=== PATIENT | male | born 1975 | race Caucasian/White ===

== ENCOUNTER 2020-03-15 14:13 | Observation (INO) | payer SELFPAY ==
[2020-03-15] VITALS (20 sets, daily range): BP systolic 136–207; BP diastolic 60–122; PULSE 79–103; RESP 14–24; TEMP 36.2–36.8; O2SAT 95–100; BMI 38.7
--- NOTE | 2020-03-15 14:40 | DI.RAD.S_ITS ---
PROCEDURE: XR CHEST 1V INDICATIONS: chest pain TECHNIQUE: One view of the chest was acquired. COMPARISON: None. FINDINGS: Surgical changes and devices: None. Lungs and pleura: Lungs are clear. No pleural effusions or pneumothorax. Mediastinum: Mediastinal contours appear normal. Heart size is enlarged. Bones and chest wall: No suspicious bony lesions. Overlying soft tissues appear unremarkable. IMPRESSION: No acute pulmonary process. Dictated by: Keysha Velasquez M.D. on 03/15/2020 at 15:31 Approved by: Keysha Velasquez M.D. on 03/15/2020 at 15:31
[2020-03-15 15:29] LABS: Add Manual Diff / Slide Review NO; Basophils Absolute Auto 0 /uL (0-100); Basophils Percent Auto 0.6 % (0-2); Eosinophils Absolute Auto 0 /uL (0-450); Eosinophils Percent Auto 0.4 % (2-4); Hemoglobin 15.5 g/dL (13.5-17.5); Lymphocytes Absolute Auto 1300 /uL (1100-4500); Lymphocytes Percent Auto 16.1 % (25-40); Mean Corpuscular HGB Conc 35.4 % (30-36); Mean Corpuscular Hemoglobin 33.5 PG (26-34); Mean Corpuscular Volume 94.6 fL (80-100); Monocytes Absolute Auto 500 /uL (0-900); Monocytes Percent Auto 6.1 % (3-14); Neutrophils Absolute Auto 6200 /uL (1500-7000); Neutrophils Percent Auto 76.8 % (50-75); Platelet Count 238 X10^3/uL (150-400); Red Blood Cell Count 4.65 X10^6/uL (4.5-5.9); Red Cell Distribution Width 13.3 % (11.6-14.8); White Blood Cell Count 8.1 X10^3/uL (4.5-11.0)
[2020-03-15 15:49] LABS: Alanine Aminotransferase 128 IU/L (<50); Albumin 4.7 g/dL (3.5-5.0); Albumin Globulin Ratio 1.4 (1.0-2.8); Alkaline Phosphatase 76 U/L (38-126); Aspartate Aminotransferase 64 IU/L (17-59); BUN Creatinine Ratio 21.1 (6-22); Bilirubin Total 0.7 mg/dL (0.2-1.3); Blood Urea Nitrogen 15 mg/dL (9-20); Calcium 9.7 mg/dL (8.4-10.2); Carbon Dioxide 26 mmol/L (22-32); Chloride 107 mmol/L (98-107); Creatine Kinase 102 U/L (55-170); Estimated Glomerular Filt Rate > 60.0 mL/min (>60); Globulin 3.4 g/dL (1.7-4.1); Glucose 116 mg/dL (70-100); HEMOLYSIS < 15 (0-50); Lipase 159 U/L (23-300); Potassium 3.9 mmol/L (3.4-5.1); Sodium 141 mmol/L (137-145); Total Protein 8.1 g/dL (6.3-8.2)
--- NOTE | 2020-03-15 15:52 | ED_ITS ---
HPI - General Adult General Chief complaint: Headache Stated complaint: headache Time Seen by Provider: 03/15/20 15:35 Source: patient and family Mode of arrival: Ambulatory Limitations: no limitations History of Present Illness HPI narrative: Patient here for multiple complaints in past 2 or 3 weeks. Patient here with mother. Patient is on [facility]. Sent here from there [facility]. Complaints of off and on headache for the past 2 or 3 weeks. Chest pain today left side nonradiating. Currently no chest pain. Also complains of a lipoma/fat pad base of left neck. Posteriorly. Patient states was placed on blood pressure medication 2 or 3 months ago. Has not gone back for recheck. Is on lisinopril. Denies any slurred speech facial droop. No unilateral weakness or numbness or tingling no confusion. No nausea or vomiting. Family history of coronary disease. Family history of stroke. Chrystal alexander never had cardiac workup in the past. No stress test. Related Data Home Medications Medication Instructions Recorded Confirmed lisinopril 30 mg PO DAILY 03/15/20 03/15/20 Previous Rx's Medication Instructions Recorded atorvastatin [Lipitor] 10 mg PO BEDTIME #30 tab 03/16/20 metoprolol tartrate 50 mg PO DAILY #30 tab 03/16/20 Allergies Allergy/AdvReac Type Severity Reaction Status Date / Time No Known Drug Allergies Allergy Verified 03/16/20 04:39 Review of Systems Review of Systems Narrative: GENERAL: Denies chills, fatigue, malaise, fever, sweats. HEENT: Denies sinus pain, ear pain, sore throat, difficulty swallowing RESPIRATORY: Denies dyspnea, cough CARDIOVASCULAR: Complains chest pain, denied palpitations, edema, GASTROINTESTINAL: Denies nausea, vomiting, abdominal pain, diarrhea, constipation, melena. : Denies dysuria, frequency, hematuria MUSCULOSKELETAL: denies muscle or bony pain SKIN: Denies rash, complains skin lesion NEUROLOGIC: Denies weakness, complaint headache, denies numbness, change in speech, confusion PSYCHIATRIC: No SI or HI or hallucinations ROS Unobtainable: All systems reviewed & are unremarkable except as noted in HPI and below Patient History Medical History Alcohol dependence (Acute) Disorder of left rotator cuff (Acute) Essential hypertension (Acute) Stress fracture of foot (Acute) Surgical History No history of previous surgery (Acute) Family History (Updated 03/16/20 @ 00:23 by JEFF Bledsoe) Father Trauma Mother Medical history unknown Grandfather Heart disease Heart attack Family/Other Stroke Social History household members: significant other Smoking Status: Former smoker Smoking Status: Former smoker alcohol intake frequency: 3 or more drinks per day Substance Use Type: marijuana Exam Narrative Exam Narrative: GENERAL: patient appears stated age. Well-nourished, well-devel oped patient, in no distress, not toxic not dyspneic HEAD: Normocephalic. EYES: Pupils equal round and reactive. No scleral icterus. No injection no discharge, patient photophobic with for endoscopy ENT: Mucous membranes moist. No drooling no tongue elevation no trismus no malocclusion NECK: Trachea midline. Non tender, no meningeal signs. There is a palpable posterior base of left neck 4 cm nontender mobile lipoma CARDIOVASCULAR: Regular rate and rhythm without murmurs, gallops, or rubs. RESPIRATORY: Clear to auscultation. Breath sounds equal bilaterally. No wheezes, rales, or rhonchi. GASTROINTESTINAL: Abdomen soft, non-tender, nondistended. EXTREMITIES: No gross deformities. BACK: Nontender without deformity or crepitance. No flank tenderness. NEURO: AOx4. Clear speech no facial droop light touch intact to bilateral face hands and legs. Strong equal developer evangelist. SKIN: Warm and dry PSYCH: Not anxious, is cooperative Initial Vital Signs Initial Vital Signs: Vital Signs Temperature 98.2 F 03/15/20 14:27 Pulse Rate 86 03/15/20 14:27 Respiratory Rate 18 03/15/20 14:27 Blood Pressure 207/122 H 03/15/20 14:27 Pulse Oximetry 100 03/15/20 14:27 Course Course Course Narrative: No cardiac workup in the past. No current chest pain at this time. Decision to Admit Date: 03/15/20 Decision to Admit time: 17:03 Orders Ordered: Discontinued Medications Acetaminophen (Tylenol) 650 mg PO Q6HR PRN PRN Reason: Fever/Mild Pain (1-3) Last Admin: 03/16/20 08:08 Dose: 650 mg Documented by: Admin: 03/16/20 03:54 Dose: 650 mg Documented by: BALWINDER Al Hydrox/Mg Hydrox/Simethicone (Maalox Plus) 30 ml PO Q6HR PRN PRN Reason: Dyspepsia Aspirin (Aspirin Chew) 324 mg PO NOW ONE Stop: 03/15/20 17:05 Last Admin: 03/15/20 17:16 Dose: 324 mg Documented by: CONSTANZA Aspirin (Aspirin Ec) 81 mg PO DAILY [facility] Last Admin: 03/16/20 08:08 Dose: 81 mg Documented by: YAYA Bisacodyl (Dulcolax) 10 mg SC DAILY PRN PRN Reason: Constipation Calcium Carbonate (Tums) 1,000 mg PO Q4HR PRN PRN Reason: Dyspepsia Carvedilol (Coreg) 3.125 mg PO BID [facility] Last Admin: 03/16/20 08:08 Dose: 3.125 mg Documented by: Admin: 03/15/20 21:53 Dose: 3.125 mg Documented by: GLORIA Chlordiazepoxide HCl (Librium) 25 mg PO TID [facility] Last Admin: 03/16/20 08:59 Dose: Not Given Documented by: Admin: 03/16/20 01:42 Dose: 25 mg Documented by: BALWINDER Docusate Sodium (Colace) 100 mg PO BID PRN PRN Reason: Constipation Enoxaparin Sodium (Lovenox) 40 mg SUBCUT DAILY [facility] Last Admin: 03/16/20 08:08 Dose: 40 mg Documented by: YAYA Folic Acid (Folic Acid) 1 mg PO DAILY [facility] Last Admin: 03/16/20 08:08 Dose: 1 mg Documented by: YAYA Magnesium Sulfate 2 gm/ Folic Acid 1 mg/ Thiamine HCl 100 mg / Multivitamins 10 ml/ Sodium Chloride 1,015.2 mls @ 125 mls/hr IV NOW ONE Stop: 03/16/20 08:32 Last Infusion: 03/16/20 09:26 Dose: 0 mls/hr Documented by: Admin: 03/16/20 01:41 Dose: 125 mls/hr Documented by: BALWINDER Labetalol HCl (Trandate) 10 mg IV NOW ONE Stop: 03/15/20 17:05 Last Admin: 03/15/20 17:17 Dose: 10 mg Documented by: CONSTANZA Labetalol HCl (Trandate) 10 mg IV Q4HR PRN PRN Reason: Hypertension Lorazepam (Ativan) 0 mg PO CIWAPRN PRN; Protocol PRN Reason: Alcohol Withdrawal Last Admin: 03/15/20 21:53 Dose: 1 mg Documented by: GLORIA Lorazepam (Ativan) 0 mg IV CIWAPRN PRN; Protocol PRN Reason: Alcohol Withdrawal Morphine Sulfate (Morphine) 2 mg IV Q5MIN PRN PRN Reason: Chest Pain Naloxone HCl (Narcan) 0.2 mg IV Q2MIN PRN PRN Reason: Opiate Reversal Nitroglycerin (Nitrostat) 0.4 mg SL [id number] PRN PRN Reason: Chest Pain Ondansetron HCl (Zofran) 4 mg IV Q8HR PRN PRN Reason: Nausea And Vomiting Pantoprazole Sodium (Protonix) 40 mg IV DAILY [facility] Last Admin: 03/16/20 08:08 Dose: 40 mg Documented by: YAYA Sodium Chloride (Normal Saline 0.9% Flush) 10 ml IV PRN PRN PRN Reason: Flush Last Admin: 03/16/20 01:42 Dose: 10 ml Documented by: DIETERRDEL Sodium Chloride (Normal Saline 0.9% Flush) 10 ml IV BID [facility] Last Admin: 03/16/20 08:08 Dose: 10 ml Documented by: YAYA Thiamine HCl (Vitamin B-1) 100 mg PO DAILY [facility] Stop: 03/18/20 09:01 Last Admin: 03/16/20 08:08 Dose: 100 mg Documented by: YAYA Reevaluation(s) Reevaluation #1: No chest pain at this time. No nitro indicated. Will give aspirin Time: 17:03 Consultations Consultation #1: Spoke with hospitalist, Dr. zamora. Will admit. Give labetalol 10 mg IV Time: 17:03 Vital Signs Vital signs: Vital Signs - 8 hr 03/15/20 14:27 03/15/20 14:35 03/15/20 15:34 Temperature 98.2 F Pulse Rate 86 87 Respiratory Rate 18 18 Blood Pressure 207/122 H 207/122 H Pulse Oximetry 100 97 03/15/20 15:37 03/15/20 16:00 03/15/20 16:01 Temperature Pulse Rate 81 86 86 Respiratory Rate 14 15 19 Blood Pressure 166/105 H 189/97 H Pulse Oximetry 96 97 97 03/15/20 16:30 03/15/20 16:31 Temperature Pulse Rate 89 88 Respiratory Rate 20 23 Blood Pressure 180/101 H Pulse Oximetry 98 96 Medical Decision Making Lab Data Lab results reviewed: Yes I reviewed the patient's lab results. Result diagrams: 03/15/20 14:40 03/16/20 03:45 Labs: Lab Results 03/15/20 03/15/20 03/15/20 Range/Units 14:40 14:40 15:19 WBC 8.1 (4.5-11.0) X10^3/uL RBC 4.65 (4.5-5.9) X10^6/uL Hgb 15.5 (13.5-17.5) g/dL Hct 44.0 (41-53) % MCV 94.6 (80-100) fL MCH 33.5 (26-34) PG MCHC 35.4 (30-36) % RDW 13.3 (11.6-14.8) % Plt Count 238 (150-400) X10^3/uL Neut % (Auto) 76.8 H (50-75) % Lymph % (Auto) 16.1 L (25-40) % Johnson % (Auto) 6.1 (3-14) % Eos % (Auto) 0.4 L (2-4) % Baso % (Auto) 0.6 (0-2) % Neut # (Auto) 6200 (8921-8388) /uL Lymph # (Auto) 1300 (5861-9925) /uL Johnson # (Auto) 500 (0-900) /uL Eos # (Auto) 0 (0-450) /uL Baso # (Auto) 0 (0-100) /uL PT 11.6 (10.1-12.7) SECONDS INR 1.0 (0.9-1.3) APTT 32 (26.4-36.2) SECONDS Sodium 141 (137-145) mmol/L Potassium 3.9 (3.4-5.1) mmol/L Chloride 107 (98-107) mmol/L Carbon Dioxide 26 (22-32) mmol/L BUN 15 (9-20) mg/dL Creatinine 0.71 (0.66-1.25) mg/dL Estimated GFR > 60.0 (>60) mL/min BUN/Creatinine Ratio 21.1 (6-22) Glucose 116 H (70-100) mg/dL Calcium 9.7 (8.4-10.2) mg/dL Total Bilirubin 0.7 (0.2-1.3) mg/dL AST 64 H (17-59) IU/L ALT 128 H (<50) IU/L Alkaline Phosphatase 76 (38-126) U/L Total Creatine Kinase 102 (55-170) U/L CK-MB (CK-2) 0.91 (<2.37) ng/mL CK-MB (CK-2) Rel Index 0.9 L (1.5-5.0) % Troponin I < 0.012 (0.01-0.034) ng/mL Total Protein 8.1 (6.3-8.2) g/dL Albumin 4.7 (3.5-5.0) g/dL Globulin 3.4 (1.7-4.1) g/dL Albumin/Globulin Ratio 1.4 (1.0-2.8) Lipase 159 (23-300) U/L Imaging Data Chest x-ray: Radiologist's Impression: [place] [address] XRay Report Signed Patient: Kem Monsalve KMR#: [id number] : 1975Acct:[id number] Age/Sex: 44 / MDate of Service: 03/15/20 Loc: ED Accession Number: [id number] Procedure: XR chest 1V Ordering Provider: Rudy Daniels MD PROCEDURE: XR CHEST 1V INDICATIONS: chest pain TECHNIQUE: One view of the chest was acquired. COMPARISON: None. FINDINGS: Surgical changes and devices: None. Lungs and pleura: Lungs are clear. No pleural effusions or pneumothorax. Mediastinum: Mediastinal contours appear normal. Heart size is enlarged. Bones and chest wall: No suspicious bony lesions. Overlying soft tissues appear unremarkable. IMPRESSION: No acute pulmonary process. Dictated by: Keysha Velasquez M.D. on 03/15/2020 at 15:31 Approved by: Keysha Velasquez M.D. on 03/15/2020 at 15:31 CT scan - head: Radiologist's Impression: [address] [address] [address] Scan Report Signed Patient: Kem Monsalve KMR#: [id number] : 1975Acct:[id number] Age/Sex: 44 / MDate of Service: 03/15/20 Loc: ED Accession Number: [id number] Procedure: CT head/brain wo con Ordering Provider: Rudy Daniels MD PROCEDURE: CT HEAD/BRAIN WO CON INDICATIONS: Headache TECHNIQUE: Noncontrast 4.5 mm thick angled axial sections acquired from the foramen magnum to the vertex, with coronal and sagittal reformats. For radiation dose reduction, the following was used: automated exposure control, adjustment of mA and/or kV according to patient size. COMPARISON: None. FINDINGS: Image quality: Excellent. CSF spaces: Basal cisterns are patent. No extra-axial fluid collections. Ventricles are normal in size and shape. Brain: No midline shift. No intracranial masses or hemorrhage. Owen-white matter interface is normal. Note is made of a cavum septum pellucidum. When discovered in isolation, this is considered to be a developmental variant of no clinical consequence. Skull and face: Calvarium and visualized facial bones are intact, without suspicious lesions. Sinuses: Visualized sinuses and mastoids are clear. IMPRESSION: Unremarkable intracranial study, without an imaging explanation found for the patient's presenting history of headache. Dictated by: Dontae Can M.D. on 03/15/2020 at 15:28 Approved by: Dontae Can M.D. on 03/15/2020 at 15:28 ECG Data Attestation: I personally reviewed and interpreted this ECG as follows: Interpretation: Sinus rhythm, rate 82. No ST elevation or depression MDM Narrative Medical decision making narrative: Appropriate for admission for chest pain rule out and hypertensive urgency/emergency Discharge Plan Departure Patient Disposition: Admitted as Observation Clinical Impression: Hypertensive urgency Chest pain Qualifiers: Chest pain type: unspecified Qualified Code(s): R07.9 - Chest pain, unspecified Discharge Date/Time: 03/15/20 18:30 Instructions: Essential Hypertension, Atorvastatin, Metoprolol, DI for High Cholesterol-Adult Admit Date/Time: 03/15/20 17:11 Admit Provider: Danika Zamora
[2020-03-15 16:01] LABS: Troponin I < 0.012 ng/mL (0.01-0.034)
[2020-03-15 16:04] LABS: CKMB % Relative Index 0.9 % (1.5-5.0); Creatine Kinase MB 0.91 ng/mL (<2.37)
[2020-03-15 16:33] LABS: Prothrombin Time 11.6 SECONDS (10.1-12.7)
[2020-03-15 16:35] LABS: PTT Partial Thromboplastin Tim 32 SECONDS (26.4-36.2)
[2020-03-15] MEDS: ASPIRIN 81 MG CHEW TAB 324 MG PO (17:16)
[2020-03-15] MEDS: LABETALOL 20 MG/4 ML SYRINGE 10 MG IV (17:17)
[2020-03-15 18:02] LABS: COVID19 -Nasal RAPID Negative (Negative)
[2020-03-15 21:15] LABS: Troponin I 0.018 ng/mL (0.01-0.034)
--- NOTE | 2020-03-15 21:35 | P.HP_ITS ---
History of Present Illness History of Present Illness Date Patient Seen: 03/15/20 Time Patient Seen: 20:11 Chief complaint: headache Narrative: Mr. Kem Monsalve is a 44-year-old male patient with a history significant for recently diagnosed hypertension and alcohol abuse who was sent in by the medical clinic on [facility] for evaluation. The patient is a dif ficult historian. The patient was started on lisinopril for hypertension 2-3 months ago which was titrated up from 20-30 mg daily. Over that time the patient felt the medication was not beneficial and reports a persistent occipital headache for the last 2-3 weeks. He further reports having blurry vision yesterday that appears to have returned to normal. He presents to the ER today related to developing chest discomfort that was nonpleuritic, non radiating without associated nausea or diaphoresis. The patient has not been monitoring his blood pressure at home. The patient denies recent cold or flu symptoms, no fevers or chills, no nasal congestion or sore throat. He describes chest tightness across precordium and denies palpitations. He denies complaints of shortness of breath and has occasional nonproductive cough but denies wheezing. Does complain of abdominal pain described as pinching in the upper abdomen with distention but no diarrhea or constipation, no hematemesis, adiel tochezia or melena. His last bowel movement was yesterday. He denies urinary difficulties. He does endorse consuming approximately 6 drinks per day and has had prior withdrawal symptoms. His last drink was 2 days ago. Upon arrival he is afebrile with a temperature 98.2?, heart rate of 86, blood pressure 207/122, respirations 18 saturating 100% on room air. A CT of the head is obtained which is unremarkable his chest x-ray finds the lungs to be clear with normal heart size. Twelve lead EKG finds sinus rhythm with ventricular rate of [address] or T-wave changes or infarct. On laboratory analysis he has a white count of 8.1, hemoglobin of 15.5, hematocrit of 44.0 platelets of 238. His PT is 11.6 with an INR 1.0 and a PTT of 32. His electrolytes are all within normal limits and has a BUN of 15 and creatinine 0.71. His nonfasting glucose is 116. He has a total bilirubin 0.7 with elevated AST of 64, elevated ALT 128 alkaline phosphatase 76. His lipase is 159. His tota l CK is 102, his CK-MB is 0.91 with an index of 0.9% his troponin is negative at less than 0.012. In the ER the patient receives 324 mg of aspirin she and labetalol 10 mg IV x1 with improvement of blood pressure into the 130s. The patient is admitted to the medicine service for hypertensive urgency with associated symptoms of chest pain and visual changes. Patient History Medical History Alcohol dependence (Acute) Disorder of left rotator cuff (Acute) Essential hypertension (Acute) Stress fracture of foot (Acute) Surgical History No history of previous surgery (Acute) Family & Social History Family History (Updated 03/16/20 @ 00:22 by JEFF Bledsoe) Father Trauma Mother Medical history unknown Grandfather Heart disease Heart attack Family/Other Stroke Social History: household members significant other Prior Living Arrangements Apartment/Condo Safety & Behavioral: Feels Safe in Current Yes Environment Been Physically Hurt or No Threatened By a Person Suicidal Ideation Description None Suicide Plan Description No Plan Tobacco & Substance use: Tobacco type smokeless tobacco Smoking Status Former smoker alcohol intake frequency 3 or more drinks per day Substance Use Type marijuana Meds Home Medications and Allergies Home Medications Medication Instructions Recorded Confirmed Type lisinopril 30 mg PO DAILY 03/15/20 03/15/20 History Review of Systems Review of Systems ROS: Yes All systems reviewed with the patient and are negative except as otherwise documented Exam Vital Signs (past 8 hours): - 03/15/20 16:30 03/15/20 16:31 03/15/20 17:00 Temperature Pulse Rate 89 88 101 H Respiratory Rate 20 23 24 Blood Pressure 180/101 H Pulse Oximetry 98 96 97 03/15/20 17:01 03/15/20 17:30 03/15/20 17:31 Temperature Pulse Rate 103 H 90 93 H Respiratory Rate 24 23 21 Blood Pressure 181/96 H 136/77 Pulse Oximetry 95 97 96 03/15/20 17:52 03/15/20 18:00 03/15/20 18:01 Temperature Pulse Rate 80 82 83 Respiratory Rate 20 22 Blood Pressure 136/77 136/60 Pulse Oximetry 97 97 03/15/20 19:47 03/15/20 20:13 03/15/20 21:53 Temperature 97.1 F L Pulse Rate 89 87 Respiratory Rate 20 Blood Pressure 145/96 H 145/96 H Pulse Oximetry 98 96 03/15/20 22:22 03/15/20 23:51 Temperature 98.0 F Pulse Rate 81 79 Respiratory Rate 16 18 Blood Pressure 160/94 H 154/86 H Pulse Oximetry 100 Oxygen Delivery Method Room Air Oxygen Flow Rate 0 Narrative Exam Narrative: GENERAL APPEARANCE: well developed, obese male, BMI 38.6, anxious and uncomfortable appearing. HEENT: Normocephalic, PERRLA, conjunctiva clear, EOMs intact, no nystagmus, mucous membranes are moist and pink without lesions LYMPH NODES: no cervical or supraclavicular lymphadenopathy. SKIN: [place], warm and dry, no visible lesions, rashes, ulcerations or petechiae. HEART: regular rate and rhythm, S1-S2, no murmur, no rubs or gallops, brisk capillary refill, no edema LUNGS: clear to auscultation bilaterally, no coarseness crackles or wheezing, no cough present CHEST: Symmetrical movement, no accessory muscle use, good tidal volume. ABDOMEN: Firm, protuberant, tympanitic bilateral upper quadrants, no fluid wave, upper abdominal tenderness on palpation, no guarding or peritoneal signs, no organomegaly, no flank or suprapubic tenderness, active bowel tones. EXTREMITIES: moves all extremities, strength is 5/5 and symmetrical, no deformities or joint effusions. NEUROLOGIC: AAO x 3, palpable tremulousness, cranial nerves II-XII grossly intact, sensation intact to light touch, hearing grossly normal to speech. PSYCH: Patient is restless and fidgety, difficult time focusing questions, remains cooperative Objective Labs Result Diagrams: 03/15/20 14:40 03/15/20 14:40 Labs: Laboratory Results - last 24 hr 03/15/20 03/15/20 03/15/20 14:40 14:40 15:19 WBC 8.1 RBC 4.65 Hgb 15.5 Hct 44.0 MCV 94.6 MCH 33.5 MCHC 35.4 RDW 13.3 Plt Count 238 Neut % (Auto) 76.8 H Lymph % (Auto) 16.1 L [place] % (Auto) 6.1 Eos % (Auto) 0.4 L Baso % (Auto) 0.6 Neut # (Auto) 6200 Lymph # (Auto) 1300 [place] # (Auto) 500 Eos # (Auto) 0 Baso # (Auto) 0 PT 11.6 INR 1.0 APTT 32 Sodium 141 Potassium 3.9 Chloride 107 Carbon Dioxide 26 BUN 15 Creatinine 0.71 Estimated GFR > 60.0 BUN/Creatinine Ratio 21.1 Glucose 116 H Calcium 9.7 Magnesium Total Bilirubin 0.7 AST 64 H ALT 128 H Alkaline Phosphatase 76 Total Creatine Kinase 102 CK-MB (CK-2) 0.91 CK-MB (CK-2) Rel Index 0.9 L Troponin I < 0.012 Total Protein 8.1 Albumin 4.7 Globulin 3.4 Albumin/Globulin Ratio 1.4 Lipase 159 Nasal Screen MRSA (PCR) COVID-19 PCR 03/15/20 03/15/20 03/15/20 17:27 18:45 20:43 WBC RBC Hgb Hct MCV MCH MCHC RDW Plt Count Neut % (Auto) Lymph % (Auto) [place] % (Auto) Eos % (Auto) Baso % (Auto) Neut # (Auto) Lymph # (Auto) [place] # (Auto) Eos # (Auto) Baso # (Auto) PT INR APTT Sodium Potassium Chloride Carbon Dioxide BUN Creatinine Estimated GFR BUN/Creatinine Ratio Glucose Calcium Magnesium 2.0 Total Bilirubin AST ALT Alkaline Phosphatase Total Creatine Kinase CK-MB (CK-2) CK-MB (CK-2) Rel Index Troponin I Total Protein Albumin Globulin Albumin/Globulin Ratio Lipase Nasal Screen MRSA (PCR) Negative for mrsa COVID-19 PCR Negative 03/15/20 20:43 WBC RBC Hgb Hct MCV MCH MCHC RDW Plt Count Neut % (Auto) Lymph % (Auto) [place] % (Auto) Eos % (Auto) Baso % (Auto) Neut # (Auto) Lymph # (Auto) [place] # (Auto) Eos # (Auto) Baso # (Auto) PT INR APTT Sodium Potassium Chloride Carbon Dioxide BUN Creatinine Estimated GFR BUN/Creatinine Ratio Glucose Calcium Magnesium Total Bilirubin AST ALT Alkaline Phosphatase Total Creatine Kinase CK-MB (CK-2) CK-MB (CK-2) Rel Index Troponin I 0.018 Total Protein Albumin Globulin Albumin/Globulin Ratio Lipase Nasal Screen MRSA (PCR) COVID-19 PCR Assessment & Plan Assessment & Plan narrative: This is a 44-year-old male patient who was sent to the emergency department [facility] related to hypertension and headache developing chest pain today. 1. Hypertensive urgency, present on admission, active -Upon arrival to the ER the patient has a blood pressure was 207/122. Describes headache for 2-3 weeks, visual changes onset yesterday and chest pain onset today. -CT of the head as well as checks x-ray are both unremarkable. -the patient has been prescribed lisinopril for his hypertension, the dose has been escalated from 20 mg to 30 mg incrementally without apparent improvement in his pressure. -in the ER the patient received 10 mg labetalol IV with marked improvement in blood pressure to 136/77. -due to lack of efficacy of lisinopril ordered Coreg 3. 125 mg twice daily. Will assess response and titrate as indicated. -will closely monitor blood pressure. 2. Chest pain, present on admission, active. -onset of chest pain today in setting of marked hypertension, pain is nonple uritic non radiating without shortness of breath and no nausea or vomiting. -EKG is sinus rhythm with a rate of 82 with PACs, no ST or T-wave changes, no infarct. -CK and troponin are both negative, will recheck troponin. -order Protonix 40 mg daily. -chest pain is resulted hypertension, will treat the underlying cause. 3. Alcohol dependence, chronic, active -patient reports drinking 6 drinks daily with his last drink 2 days ago. At time of encounter he is restless and agitated diaphoretic with tremulousness. Patient has had previous alcohol withdrawals. -bilirubin is normal at 0.7 however AST is 64 and ALT 128, lipase is 159. -patient is started on CIWA protocol with p.o. or IV lorazepam per protocol dosing. Seizure precautions in place. -will start low-dose Librium 25 mg 3 times daily. -ordered banana bag with thiamine 100 mg daily for 3 days and folate 1 mg daily. VTE prophylaxis: Enoxaparin IV fluid: Banana bag Diet: Heart healthy Code status: Full code, patient does not designate a surrogate decision maker. The patient is admitted to the hospital due to hypertensive urgency with associated symptoms of chest pain, headache and visual changes. The patient is admitted as observation with expected length of stay to be less than 2 COVID-19 COVID-19 status: Negative Result date/Date tested (Pos, Neg/Pending): 03/15/20 Scores GCS Rosangela coma scale eye opening: Spontaneous [place] coma scale verbal response: Orientated [place] coma scale motor response: Obey commands Rosangela coma scale total score: 15
[2020-03-15] MEDS: carvediloL 3.125 MG TABLET PO (21:53)
[2020-03-15] MEDS: LORazepam 1 MG TABLET PO (21:53)
[2020-03-16] MEDS: MAGNESIUM SULFATE 2 GM, FOLIC ACID 1 MG, THIAMINE 100 MG, MULTIVITAMIN 10 ML in SODIUM ... IV (01:41)
[2020-03-16] MEDS: chlordiazePOXIDE 25 MG CAPSULE PO ×2 (01:42→08:08)
[2020-03-16] MEDS: SODIUM CHLORIDE 0.9% FLUSH 10 ML IV ×2 (01:42→08:08)
[2020-03-16 01:45] VITALS: O2SAT 97
[2020-03-16] MEDS: ACETAMINOPHEN 325 MG TABLET 650 MG PO ×2 (03:54→08:08)
[2020-03-16 04:00] VITALS: BP 132/81; PULSE 72; RESP 15; TEMP 36.3; O2SAT 97
[2020-03-16 04:06] LABS: BUN Creatinine Ratio 27.7 (6-22); Blood Urea Nitrogen 23 mg/dL (9-20); Calcium 8.6 mg/dL (8.4-10.2); Carbon Dioxide 28 mmol/L (22-32); Chloride 108 mmol/L (98-107); Cholesterol 245 mg/dL (140-199); Estimated Glomerular Filt Rate > 60.0 mL/min (>60); Glucose 120 mg/dL (70-100); HDL Cholesterol 42 mg/dL (40-60); HEMOLYSIS < 15 (0-50); LDL Cholesterol Calculated 145 mg/dL (<100); Sodium 140 mmol/L (137-145); Triglycerides 289 mg/dL (35-150)
[2020-03-16 04:18] LABS: Troponin I < 0.012 ng/mL (0.01-0.034)
[2020-03-16 04:21] LABS: Hemoglobin A1C% w Est Avg Glu 5.6 % (4.0-6.0)
[2020-03-16 05:04] LABS: TSH w/ Reflex to FT4 4.57 uIU/mL (0.47-4.68)
--- NOTE | 2020-03-16 06:19 | PC.NURSE ---
Sack Cleaning Hand Note-Patient has slept most of the night, rouses for care, is oriented x4, CIWA 3-4, denies anxiety, displays mild irritability, no tremors, mild diaphoresis, Tylenol given for headache, PO Librium and Banana bag started. SR, PACs. BP 154/86 and 132/81.
[2020-03-16 08:00] VITALS: BP 137/86; PULSE 76; RESP 22; TEMP 36.3; O2SAT 98
[2020-03-16] MEDS: FOLIC ACID 1 MG TABLET PO (08:08)
[2020-03-16] MEDS: ENOXAPARIN 40 MG/0.4 ML SYRINGE SUBCUT (08:08)
[2020-03-16] MEDS: PANTOPRAZOLE 40 MG VIAL IV (08:08)
[2020-03-16] MEDS: THIAMINE 100 MG TABLET PO (08:08)
[2020-03-16] MEDS: carvediloL 3.125 MG TABLET PO (08:08)
[2020-03-16] MEDS: ASPIRIN EC 81 MG TABLET PO (08:08)
--- NOTE | 2020-03-16 09:37 | PM.DS.1 ---
History of Present Illness History of Present Illness Chief complaint: headache Narrative: Mr. Kem Monsalve is a 44-year-old male patient with a history significant for recently diagnosed hypertension and alcohol abuse who was sent in by the medical clinic on [facility] for evaluation. The patient is a difficult historian. The patient was started on lisinopril for hypertension 2-3 months ago which was titrated up from 20-30 mg daily. Over that time the patient felt the medication was not beneficial and reports a persistent occipital headache for the last 2-3 weeks. He further reports having blurry vision yesterday that appears to have returned to normal. He presents to the ER today related to developing chest discomfort that was nonpleuritic, non radiating without associated nausea or diaphoresis. The patient has not been monitoring his blood pressure at home. The patient denies recent cold or flu symptoms, no fevers or chills, no nasal congestion or sore throat. He describes chest tightness across precordium and denies palpitations. He denies complaints of shortness of breath and has occasional nonproductive cough but denies wheezing. Does complain of abdominal pain described as pinching in the upper abdomen with distention but no diarrhea or constipation, no hematemesis, hematochezia or melena. His last bowel movement was yesterday. He denies urinary difficulties. He does endorse consuming approximately 6 drinks per day and has had prior withdrawal symptoms. His last drink was 2 days ago. Upon arrival he is afebrile with a temperature 98.2?, heart rate of 86, blood pressure 207/122, respirations 18 saturating 100% on room air. A CT of the head is obtained which is unremarkable his chest x-ray finds the lungs to be clear with normal heart size. Twelve lead EKG finds sinus rhythm with ventricular rate of [address] or T-wave changes or infarct. On laboratory analysis he has a white count of 8.1, hemoglobin of 15.5, hematocrit of 44.0 platelets of 238. His PT is 11.6 with an INR 1.0 and a PTT of 32. His electrolytes are all within normal limits and has a BUN of 15 and creatinine 0.71. His nonfasting glucose is 116. He has a total bilirubin 0.7 with elevated AST of 64, elevated ALT 128 alkaline phosphatase 76. His lipase is 159. His total CK is 102, his CK-MB is 0.91 with an index of 0.9% his troponin is negative at less than 0.012. In the ER the patient receives 324 mg of aspirin she and labetalol 10 mg IV x1 with improvement of blood pressure into the 130s. The patient is admitted to the medicine service for hypertensive urgency with associated symptoms of chest pain and visual changes. Discharge Providers Provider Date of admission: 03/15/20 17:11 Discharge Date: 03/16/20 Consults: 03/15/20 19:39 Consult to Dietitian, Adult Routine Comment: Reason For Exam: Obese, BMI 30.7 Consult to Discharge Planning Routine Comment: Discharge provider: Danika Zamora MD Summary Hospital Course Discharge Diagnosis: 1. Hypertensive urgency 2. Hyperlipidemia 3. Alcohol dependence 4. Obesity Hospital Course: Patient was admitted to the hospital for hypertensive urgency. His systolic blood pressure was 180 diastolic 100. He had associated headache and chest pain. The patient's EKG was unremarkable, cardiac enzymes x2 were negative. Patient had no further chest pain. He had a minimal headache. With treatment on IV labetalol and lisinopril he had improvement of his blood pressure. The patient had no further shaking diaphoresis. He refused to take his morning Librium. The patient had no hallucinations. Or other symptoms of alcohol withdrawal. As such she was deemed appropriate for discharge and arrangements were made for him to be discharged home. The patient follows up at the clinic on [facility]. He will obtain a blood pressure cuff and measures blood pressures as an outpatient. He will follow-up with his primary care provider for adjustments of medications as needed. Status at Discharge Cognitive/behavioral status at discharge: oriented Functional status at discharge: independent ambulation Overall status at discharge: patient is back to baseline Time Spent with Patient Time spent: Less than 30 minutes Exam Vital Signs (past 8 hours): - 03/16/20 01:45 03/16/20 04:00 03/16/20 08:00 Temperature 97.3 F L 97.4 F L Pulse Rate 72 76 Respiratory Rate 15 22 Blood Pressure 132/81 137/86 Pulse Oximetry 97 97 98 Oxygen Delivery Method Room Air Oxygen Flow Rate 0 Narrative Exam Narrative: Pleasant male in no acute distress Lungs: Clear to auscultation Cardiac exam: Regular rate and rhythm normal S1-S2 Abdomen: Obese soft nontender Extremities: No edema Objective Labs Result Diagrams: 03/15/20 14:40 03/16/20 03:45 Labs: Laboratory Results - last 24 hr 03/15/20 03/15/20 03/15/20 14:40 14:40 15:19 WBC 8.1 RBC 4.65 Hgb 15.5 Hct 44.0 MCV 94.6 MCH 33.5 MCHC 35.4 RDW 13.3 Plt Count 238 Neut % (Auto) 76.8 H Lymph % (Auto) 16.1 L Sol[place] % (Auto) 6.1 Eos % (Auto) 0.4 L Baso % (Auto) 0.6 Neut # (Auto) 6200 Lymph # (Auto) 1300 [place] # (Auto) 500 Eos # (Auto) 0 Baso # (Auto) 0 PT 11.6 INR 1.0 APTT 32 Sodium 141 Potassium 3.9 Chloride 107 Carbon Dioxide 26 BUN 15 Creatinine 0.71 Estimated GFR > 60.0 BUN/Creatinine Ratio 21.1 Glucose 116 H Hemoglobin A1c Calcium 9.7 Magnesium Total Bilirubin 0.7 AST 64 H ALT 128 H Alkaline Phosphatase 76 Total Creatine Kinase 102 CK-MB (CK-2) 0.91 CK-MB (CK-2) Rel Index 0.9 L Troponin I < 0.012 Total Protein 8.1 Albumin 4.7 Globulin 3.4 Albumin/Globulin Ratio 1.4 Triglycerides Cholesterol LDL Cholesterol, Calc HDL Cholesterol Lipase 159 TSH Nasal Screen MRSA (PCR) COVID-19 PCR 03/15/20 03/15/20 03/15/20 17:27 18:45 20:43 WBC RBC Hgb Hct MCV MCH MCHC RDW Plt Count Neut % (Auto) Lymph % (Auto) Sol[place] % (Auto) Eos % (Auto) Baso % (Auto) Neut # (Auto) Lymph # (Auto) Sol[place] # (Auto) Eos # (Auto) Baso # (Auto) PT INR APTT Sodium Potassium Chloride Carbon Dioxide BUN Creatinine Estimated GFR BUN/Creatinine Ratio Glucose Hemoglobin A1c Calcium Magnesium 2.0 Total Bilirubin AST ALT Alkaline Phosphatase Total Creatine Kinase CK-MB (CK-2) CK-MB (CK-2) Rel Index Troponin I Total Protein Albumin Globulin Albumin/Globulin Ratio Triglycerides Cholesterol LDL Cholesterol, Calc HDL Cholesterol Lipase TSH Nasal Screen MRSA (PCR) Negative for mrsa COVID-19 PCR Negative 03/15/20 03/16/20 03/16/20 20:43 03:45 03:45 WBC RBC Hgb Hct MCV MCH MCHC RDW Plt Count Neut % (Auto) Lymph % (Auto) Sol[place] % (Auto) Eos % (Auto) Baso % (Auto) Neut # (Auto) Lymph # (Auto) [place] # (Auto) Eos # (Auto) Baso # (Auto) PT INR APTT Sodium 140 Potassium 4.0 Chloride 108 H Carbon Dioxide 28 BUN 23 H Creatinine 0.83 Estimated GFR > 60.0 BUN/Creatinine Ratio 27.7 H Glucose 120 H Hemoglobin A1c Calcium 8.6 Magnesium Total Bilirubin AST ALT Alkaline Phosphatase Total Creatine Kinase CK-MB (CK-2) CK-MB (CK-2) Rel Index Troponin I 0.018 < 0.012 Total Protein Albumin Globulin Albumin/Globulin Ratio Triglycerides 289 H Cholesterol 245 H LDL Cholesterol, Calc 145 H HDL Cholesterol 42 Lipase TSH Nasal Screen MRSA (PCR) COVID-19 PCR 03/16/20 03/16/20 03:45 03:45 WBC RBC Hgb Hct MCV MCH MCHC RDW Plt Count Neut % (Auto) Lymph % (Auto) Sol[place] % (Auto) Eos % (Auto) Baso % (Auto) Neut # (Auto) Lymph # (Auto) [place] # (Auto) Eos # (Auto) Baso # (Auto) PT INR APTT Sodium Potassium Chloride Carbon Dioxide BUN Creatinine Estimated GFR BUN/Creatinine Ratio Glucose Hemoglobin A1c 5.6 Calcium Magnesium Total Bilirubin AST ALT Alkaline Phosphatase Total Creatine Kinase CK-MB (CK-2) CK-MB (CK-2) Rel Index Troponin I Total Protein Albumin Globulin Albumin/Globulin Ratio Triglycerides Cholesterol LDL Cholesterol, Calc HDL Cholesterol Lipase TSH 4.57 Nasal Screen MRSA (PCR) COVID-19 PCR Discharge Assessment & Plan Assessment and Plan Assessment: 1. Hypertension 2. Hyperlipidemia 3. Alcohol dependence 4. Obesity Plan of Treatment: Medications as prescribed Follow-up with his primary care provider on [facility] next week Home blood pressure cuff to monitor blood pressure accordingly Discharge Plan Discharge Plan Patient Disposition: Home Discharge orders & Medications Prescriptions: New atorvastatin [Lipitor] 10 mg tablet 10 mg PO BEDTIME Qty: 30 RF: 0 metoprolol tartrate 50 mg tablet 50 mg PO DAILY Qty: 30 RF: 0 Continued lisinopril 30 mg Tablet 30 mg PO DAILY RF: 0 Discharge Health Status Care Plan Goals: follow up with PCP on [facility] as discussed. Purchase blood pressure cuff. Take BP and follow up with MD regarding blood pressure readings Diet/Activity/Treatments Diet: Low-sodium and Low-cholesterol Activity: as tolerated Visit Report/Discharge Packet Instructions: Essential Hypertension, Atorvastatin, Metoprolol, DI for High Cholesterol-Adult Visit Report Forms: Patient Portal/API, Stroke Signs & Symptoms Discharge Data Attending Provider: Danika Zamora Admit Date/Time: 03/15/20 17:11 Discharges patient from system. Discharge Date/Time: 03/16/20 12:00
--- NOTE | 2020-03-16 10:58 | CM.DANOTE ---
DCP/Assessment: Reviewed chart. Patient is a 44yr old male admitted to [facility] with headache. No PCP listed. Primary payor is 1)self pay. Met with patient explained CM/SW role. Patient alert and oriented sitting in recliner at time of visit. Patient reports that he hopes to go home today. Dr. Zamora confirms that patient is medically stable. Patient reports that he is working with state on his Medicaid application but he is unsure he will qualify due to employment/income. Patient reports that he actively drinks alcohol. Patient denies the need for any community resources. Encouraged patient to refrain from drinking. Patient will need priority boarding for return sailing to [facility]. RN updated. P: Home today. GIO Fortune Discharge Planning/Care Management Discharge Assessment Start: 03/16/20 10:55 Freq: Status: Active Protocol: Document 03/16/20 10:55 KJS (Rec: 03/16/20 10:58 KJS [id number]) Discharge Planning Assessment Assigned Master Carpenter GIO Fortune Contact Information Ester Norman (mother) Advance Directives? No History Provided By Patient,Medical Record Prior Living Arrangements Apartment/Condo Household Members significant other Type of transporation used prior to Drives own vehicle admit Independent with ADL's Yes Is patient alert and oriented? Yes Caregiver for Another No Barriers to Discharge No Discharge Plan Home Transportation Arrangement Family/friend to provide transport. Referrals Initiated None needed Additional Comment Patient denies need for any community resources. Whiteboard Updated in Patient Room with Yes name and ext. # of Master Carpenter Review Status In Process Next Review Type Continued Stay Review
--- NOTE | 2020-03-16 11:33 | DIET.PN ---
Dietary Progress Note Assessment: 44y M admitted to ICU for hypertensive urgency (BP 207/122) c 2-3w headaches found to have HTG and HLD c family hx of stroke, referred to nutrition for heart healthy diet teaching. Pt was dressed and pacing in room during visit, pts visitor was sitting on cell phone not participating in conversation. Usual Day: doesn't often eat breakfast or lunch, sometimes does a Slim Fast or V8 juice. D: for past 4w pt has subscribed to [employer] meal service which covers all dinners each week. Pt feels [employer] is good value and healthier than what he would otherwise cook himself. Per chart review pt has hx of 6+ etoh equivalents/d. Pt reports working in [employer] prior to cov. Hurt his shoulder and broke his foot since then so has impaired mobility. Pt feels pandemic has changed his life a lot leading to much time at home and some fear regarding being in public places. HT: 177.8cm WT: 122kg BMI: 38.6 Labs: TG 289 H, TC 245 H, LDL 145 H, HDL 42 MNA: normal status Julio Cesar: 22 Nutrition Diagnosis: altered nutrition related laboratory values (TC, TG, LDL, BP) r/t undesirable food choices and nutrition related knowledge deficit aeb pt consuming high sodium foods and diet low in soluble fiber (V8, little F/V/nuts/beans), pt admitted for hypertensive urgency (BP 207/122), TG 289 H, TC 245 H, LDL 145 H. Interventions: 1. Using handout, discussed low sodium diet including hidden sodium sources (bread, canned and boxed foods, salt seasonings). Discussed role of sodium in high bp. Pt willing to switch to LS V8 and use less salt than what is called for in [employer] meals. Discussed role of physical activity in BP, pt has bike which he could start riding to recondition himself since being out of work and his foot is mostly healed. 2. Using handout, discussed role of soluble fiber to reduce cholesterol and for weight management. Pt reports having a couple bags of dried black beans in cupboard he could try to use. Pt likes chili beans, encouraged caution c sodium content of prepared beans. Pt has pear tree and will start eating them more. 3. Discussed role of meal replacement shakes for weight loss and importance of establishing normal eating routine. Pt sometimes has Slim Fast. Discussed kcal and sugar content of ONS drinks and to aim for those with low kcal and sugar to promote weight loss. Diet Order: Heart Healthy EER: 2g Na restriction, 30g Fiber goal
== END 2020-03-16 12:00 | disposition home or self-care (01) ==
LOC: ED 17:06 → AC 17:12 → ICU 18:42
PROVIDERS: Nurse Practitioner Adult Health; Admitting Provider Internal Medicine; Emergency Provider Emergency Medicine; Referring Provider Emergency Medicine; Visit Provider Internal Medicine
DX: I16.0 Hypertensive urgency (principal); R51.9 Headache, unspecified; I10 Essential (primary) hypertension; F10.20 Alcohol dependence, uncomplicated; E78.5 Hyperlipidemia, unspecified; E66.9 Obesity, unspecified; Z68.30 Body mass index [BMI] 30.0-30.9, adult; Z11.59 Encounter for screening for other viral diseases
CPT/HCPCS: 36415; 70450; 71045; 80048; 80053; 80061; 82550; 82553; 83036; 83690; 83735; 84443; 84484; 85025; 85610; 85730; 87635; 87797; 93005; 96361; 96372; 96374; 99284; G0378; C9113; J1650; J3475

== ENCOUNTER → 2021-02-15 08:04 | Outpatient (CLI) | payer SELFPAY ==
[2020-03-15 18:45] VITALS: BMI 38.7
[2021-02-15 20:36] LABS: Add Manual Diff / Slide Review NO; Basophils Absolute Auto 0 /uL (0-100); Basophils Percent Auto 0.6 % (0-2); Eosinophils Absolute Auto 100 /uL (0-450); Eosinophils Percent Auto 1.2 % (2-4); Hematocrit 42.7 % (41-53); Hemoglobin 14.3 g/dL (13.5-17.5); Lymphocytes Absolute Auto 1200 /uL (1100-4500); Lymphocytes Percent Auto 26.9 % (25-40); Mean Corpuscular HGB Conc 33.5 % (30-36); Mean Corpuscular Hemoglobin 32.4 PG (26-34); Mean Corpuscular Volume 96.8 fL (80-100); Monocytes Absolute Auto 500 /uL (0-900); Monocytes Percent Auto 10.5 % (3-14); Neutrophils Absolute Auto 2800 /uL (1500-7000); Neutrophils Percent Auto 60.8 % (50-75); Platelet Count 247 X10^3/uL (150-400); Red Blood Cell Count 4.41 X10^6/uL (4.5-5.9); Red Cell Distribution Width 14.1 % (11.6-14.8); White Blood Cell Count 4.5 X10^3/uL (4.5-11.0)
[2021-02-15 20:43] LABS: Alanine Aminotransferase 38 IU/L (<50); Albumin 4.5 g/dL (3.5-5.0); Albumin Globulin Ratio 1.9 (1.0-2.8); Alkaline Phosphatase 140 U/L (38-126); Aspartate Aminotransferase 33 IU/L (17-59); BUN Creatinine Ratio 15.9 (6-22); Bilirubin Total 0.6 mg/dL (0.2-1.3); Blood Urea Nitrogen 10 mg/dL (9-20); Carbon Dioxide 25 mmol/L (22-32); Chloride 96 mmol/L (98-107); Cholesterol 238 mg/dL (140-199); Estimated Glomerular Filt Rate > 60.0 mL/min (>60); Globulin 2.4 g/dL (1.7-4.1); Glucose 355 mg/dL (70-100); HDL Cholesterol 55 mg/dL (40-60); HEMOLYSIS < 15 (0-50); Potassium 3.9 mmol/L (3.4-5.1); Sodium 137 mmol/L (137-145); Total Protein 6.9 g/dL (6.3-8.2); Triglycerides 440 mg/dL (35-150); Uric Acid 8.2 mg/dL (3.5-8.5)
[2021-02-15 20:46] LABS: Hemoglobin A1C% w Est Avg Glu 12.3 % (4.0-6.0)
[2021-02-15 21:12] LABS: TSH w/ Reflex to FT4 3.45 uIU/mL (0.47-4.68)
== END ==
PROVIDERS: PCP Physician Assistant; Visit Provider Physician Assistant
DX: E78.2 Mixed hyperlipidemia (principal); M10.9 Gout, unspecified; I10 Essential (primary) hypertension; R73.01 Impaired fasting glucose
CPT/HCPCS: 80053; 80061; 83036; 84443; 84550; 85025

== ENCOUNTER → 2021-03-14 10:08 | Outpatient (CLI) | payer SELFPAY ==
[2020-03-15 18:45] VITALS: BMI 38.7
== END ==
PROVIDERS: PCP Physician Assistant; Visit Provider Physician Assistant
DX: E11.9 Type 2 diabetes mellitus without complications (principal); Z12.11 Encounter for screening for malignant neoplasm of colon
CPT/HCPCS: 83036

== ENCOUNTER → 2021-03-15 08:16 | Outpatient (CLI) | payer SELFPAY ==
[2020-03-15 18:45] VITALS: BMI 38.7
[2021-03-17 10:47] LABS: Fecal Immunochemical Test Negative (Negative)
== END ==
PROVIDERS: PCP Physician Assistant; Referring Provider Physician Assistant; Visit Provider Physician Assistant
DX: E11.9 Type 2 diabetes mellitus without complications (principal); Z12.11 Encounter for screening for malignant neoplasm of colon
CPT/HCPCS: 82274

== ENCOUNTER → 2021-04-20 09:32 | Outpatient (CLI) | payer SELFPAY ==
[2020-03-15 18:45] VITALS: BMI 38.7
[2021-04-20 19:09] LABS: Add Manual Diff / Slide Review NO; Basophils Absolute Auto 0 /uL (0-100); Basophils Percent Auto 0.6 % (0-2); Eosinophils Absolute Auto 100 /uL (0-450); Eosinophils Percent Auto 1.7 % (2-4); Hematocrit 42.7 % (41-53); Hemoglobin 14.5 g/dL (13.5-17.5); Lymphocytes Absolute Auto 1400 /uL (1100-4500); Lymphocytes Percent Auto 23.6 % (25-40); Mean Corpuscular HGB Conc 33.9 % (30-36); Mean Corpuscular Volume 97.3 fL (80-100); Monocytes Absolute Auto 400 /uL (0-900); Monocytes Percent Auto 7.3 % (3-14); Neutrophils Absolute Auto 3900 /uL (1500-7000); Neutrophils Percent Auto 66.8 % (50-75); Platelet Count 240 X10^3/uL (150-400); Red Blood Cell Count 4.38 X10^6/uL (4.5-5.9); Red Cell Distribution Width 13.3 % (11.6-14.8); White Blood Cell Count 5.9 X10^3/uL (4.5-11.0)
[2021-04-20 19:21] LABS: Alanine Aminotransferase 24 IU/L (<50); Albumin 4.6 g/dL (3.5-5.0); Albumin Globulin Ratio 1.8 (1.0-2.8); Alkaline Phosphatase 135 U/L (38-126); Aspartate Aminotransferase 23 IU/L (17-59); BUN Creatinine Ratio 30.8 (6-22); Bilirubin Total 0.6 mg/dL (0.2-1.3); Blood Urea Nitrogen 16 mg/dL (9-20); Calcium 9.9 mg/dL (8.4-10.2); Carbon Dioxide 32 mmol/L (22-32); Chloride 95 mmol/L (98-107); Cholesterol 249 mg/dL (140-199); Estimated Glomerular Filt Rate > 60.0 mL/min (>60); Globulin 2.6 g/dL (1.7-4.1); Glucose 429 mg/dL (70-100); HDL Cholesterol 61 mg/dL (40-60); HEMOLYSIS < 15 (0-50); Hemoglobin A1C% w Est Avg Glu 12.8 % (4.0-6.0); LDL Cholesterol Calculated 121 mg/dL (<100); Potassium 4.1 mmol/L (3.4-5.1); Sodium 137 mmol/L (137-145); Total Protein 7.2 g/dL (6.3-8.2); Triglycerides 334 mg/dL (35-150)
== END ==
PROVIDERS: PCP Physician Assistant; Referring Provider Physician Assistant; Visit Provider Physician Assistant
DX: E11.9 Type 2 diabetes mellitus without complications (principal); I10 Essential (primary) hypertension; E78.2 Mixed hyperlipidemia; R60.9 Edema, unspecified; Z72.89 Other problems related to lifestyle; E11.65 Type 2 diabetes mellitus with hyperglycemia
CPT/HCPCS: 80053; 80061; 83036; 85025

== ENCOUNTER → 2022-04-24 13:36 | Outpatient (CLI) | payer OTHER, SELFPAY ==
[2021-04-27 15:37] VITALS: BMI 38.7
[2022-04-24 19:56] LABS: Alanine Aminotransferase 149 IU/L (<50); Albumin 4.9 g/dL (3.5-5.0); Albumin Globulin Ratio 1.5 (1.0-2.8); Alkaline Phosphatase 85 U/L (38-126); Aspartate Aminotransferase 97 IU/L (17-59); BUN Creatinine Ratio 28.4 (6-22); Bilirubin Total 1.1 mg/dL (0.2-1.3); Blood Urea Nitrogen 21 mg/dL (9-20); Carbon Dioxide 27 mmol/L (22-32); Chloride 99 mmol/L (98-107); Estimated Glomerular Filt Rate > 60 mL/min (>60); Globulin 3.3 g/dL (1.7-4.1); Glucose 121 mg/dL (70-100); HEMOLYSIS < 15 (0-50); Potassium 3.5 mmol/L (3.4-5.1); Sodium 139 mmol/L (137-145); Total Protein 8.2 g/dL (6.3-8.2)
[2022-04-24 20:26] LABS: Cholesterol 195 mg/dL (140-199); HDL Cholesterol 65 mg/dL (40-60); LDL Cholesterol Calculated 91 mg/dL (<100); Triglycerides 193 mg/dL (35-150)
[2022-04-25 13:24] LABS: Hemoglobin A1C% w Est Avg Glu 5.7 % (4.0-6.0)
== END ==
PROVIDERS: PCP Physician Assistant; Visit Provider Physician Assistant
DX: E11.65 Type 2 diabetes mellitus with hyperglycemia (principal); E78.2 Mixed hyperlipidemia; I10 Essential (primary) hypertension
CPT/HCPCS: 80053; 80061; 83036

== ENCOUNTER → 2022-06-01 10:31 | Outpatient (CLI) | payer OTHER, SELFPAY ==
[2022-05-08 09:18] VITALS: BMI 38.7
[2022-06-01 19:50] LABS: Alanine Aminotransferase 143 IU/L (<50); Albumin 4.5 g/dL (3.5-5.0); Albumin Globulin Ratio 1.5 (1.0-2.8); Alkaline Phosphatase 109 U/L (38-126); Aspartate Aminotransferase 86 IU/L (17-59); BUN Creatinine Ratio 21.3 (6-22); Bilirubin Total 0.5 mg/dL (0.2-1.3); Blood Urea Nitrogen 17 mg/dL (9-20); Calcium 9.2 mg/dL (8.4-10.2); Carbon Dioxide 28 mmol/L (22-32); Chloride 99 mmol/L (98-107); Estimated Glomerular Filt Rate > 60 mL/min (>60); Gamma Glutamyl Transpeptidase 368 U/L (15-73); Globulin 3.1 g/dL (1.7-4.1); Glucose 153 mg/dL (70-100); HEMOLYSIS < 15 (0-50); Potassium 4.1 mmol/L (3.4-5.1); Sodium 139 mmol/L (137-145); Total Protein 7.6 g/dL (6.3-8.2)
== END ==
PROVIDERS: PCP Physician Assistant; Visit Provider Physician Assistant
DX: R74.8 Abnormal levels of other serum enzymes (principal)
CPT/HCPCS: 80053; 82977

== ENCOUNTER → 2022-06-20 11:52 | Outpatient (CLI) | payer OTHER, SELFPAY ==
[2022-05-08 09:18] VITALS: BMI 38.7
--- NOTE | 2022-06-20 | DI.US.S_ITS ---
PROCEDURE: US ABDOMEN LIMITED INDICATIONS: Abnormal levels of other serum enzymes TECHNIQUE: Real-time focused scanning was performed of the abdomen, with image documentation. COMPARISON: None. FINDINGS: The liver demonstrates enlarged size. The liver demonstrates generalized severe increased echogenicity. This decreases ultrasound sensitivity for detection of hepatic masses. No findings of gallstones or sludge are seen. The gallbladder wall is not thickened, measuring 3 mm or less. No specific pericholecystic fluid is seen. The sonographic Keith sign is negative. There is no biliary dilatation, the common bile duct measures 7 mm. No significant pancreatic abnormality is seen on these images. This study is limited by body habitus. IMPRESSION: Enlarged, severely fatty infiltrated liver. The gallbladder demonstrates a normal sonographic appearance. No biliary dilatation is seen. Dictated by: Dontae Can M.D. on 06/20/2022 at 14:26 Approved by: Dontae Can M.D. on 06/20/2022 at 14:26
== END ==
PROVIDERS: PCP Physician Assistant; Referring Provider Physician Assistant; Visit Provider Physician Assistant
DX: R74.8 Abnormal levels of other serum enzymes (principal); K76.0 Fatty (change of) liver, not elsewhere classified
CPT/HCPCS: 76705

== ENCOUNTER → 2022-06-28 09:05 | Outpatient (CLI) | payer OTHER, SELFPAY ==
[2022-05-08 09:18] VITALS: BMI 38.7
[2022-06-28 19:15] LABS: Cholesterol 176 mg/dL (140-199); HDL Cholesterol 62 mg/dL (40-60); LDL Cholesterol Calculated 49 mg/dL (<100); Triglycerides 325 mg/dL (35-150)
[2022-06-28 19:16] LABS: HEMOLYSIS < 15 (0-50); Iron 195 ug/dL (49-181)
[2022-06-28 19:28] LABS: Percent Iron Saturation 57 % (20-50); Total Iron Binding Capacity 342 ug/dL (261-462); Transferrin 269 mg/dL (206-381)
[2022-06-28 20:32] LABS: Ferritin 1110 ng/mL (18-464)
[2022-06-29 16:13] LABS: Hepatitis B Surface Antigen NEGATIVE s/c (NEGATIVE)
[2022-06-30 00:07] LABS: Hepatitis A Ab Total Negative (Negative)
[2022-06-30 04:09] LABS: Hepatitis B Core AB w/Reflex Negative (Negative)
== END ==
PROVIDERS: PCP Physician Assistant; Visit Provider Physician Assistant
DX: E78.2 Mixed hyperlipidemia (principal); R74.8 Abnormal levels of other serum enzymes
CPT/HCPCS: 80061; 82728; 83540; 83550; 86704; 86708; 87340; 87522

== ENCOUNTER → 2022-07-13 14:13 | Outpatient (CLI) | payer OTHER, SELFPAY ==
[2022-05-08 09:18] VITALS: BMI 38.7
[2022-07-13 19:24] LABS: Add Manual Diff / Slide Review NO; Basophils Absolute Auto 0 /uL (0-100); Basophils Percent Auto 0.5 % (0-2); Eosinophils Absolute Auto 100 /uL (0-450); Eosinophils Percent Auto 1.9 % (2-4); Hematocrit 38.8 % (41-53); Hemoglobin 13.5 g/dL (13.5-17.5); Lymphocytes Absolute Auto 1600 /uL (1100-4500); Lymphocytes Percent Auto 30.1 % (25-40); Mean Corpuscular HGB Conc 34.8 % (30-36); Mean Corpuscular Hemoglobin 33.9 PG (26-34); Mean Corpuscular Volume 97.4 fL (80-100); Monocytes Absolute Auto 500 /uL (0-900); Monocytes Percent Auto 8.3 % (3-14); Neutrophils Absolute Auto 3200 /uL (1500-7000); Neutrophils Percent Auto 59.2 % (50-75); Platelet Count 220 X10^3/uL (150-400); Red Blood Cell Count 3.98 X10^6/uL (4.5-5.9); Red Cell Distribution Width 13.7 % (11.6-14.8); White Blood Cell Count 5.5 X10^3/uL (4.5-11.0)
[2022-07-13 19:46] LABS: Alanine Aminotransferase 98 IU/L (<50); Albumin 4.3 g/dL (3.5-5.0); Albumin Globulin Ratio 1.6 (1.0-2.8); Alkaline Phosphatase 114 U/L (38-126); Aspartate Aminotransferase 66 IU/L (17-59); BUN Creatinine Ratio 35.5 (6-22); Bilirubin Total 0.5 mg/dL (0.2-1.3); Blood Urea Nitrogen 33 mg/dL (9-20); Calcium 9.6 mg/dL (8.4-10.2); Carbon Dioxide 27 mmol/L (22-32); Chloride 104 mmol/L (98-107); Estimated Glomerular Filt Rate > 60 mL/min (>60); Globulin 2.7 g/dL (1.7-4.1); Glucose 153 mg/dL (70-100); HEMOLYSIS < 15 (0-50); Potassium 4.4 mmol/L (3.4-5.1); Sodium 143 mmol/L (137-145)
[2022-07-13 20:27] LABS: HIV 1 & 2 Ab/Ag 4th Gen Combo NEGATIVE (NEGATIVE)
== END ==
PROVIDERS: PCP Physician Assistant; Visit Provider Physician Assistant
DX: E11.65 Type 2 diabetes mellitus with hyperglycemia (principal); F10.20 Alcohol dependence, uncomplicated; R79.89 Other specified abnormal findings of blood chemistry; R74.8 Abnormal levels of other serum enzymes
CPT/HCPCS: 80053; 85025; 87389

== ENCOUNTER → 2022-09-06 13:32 | Outpatient (CLI) | payer OTHER, SELFPAY ==
[2022-05-08 09:18] VITALS: BMI 38.7
[2022-09-06 19:53] LABS: Alanine Aminotransferase 89 IU/L (<50); Albumin 4.7 g/dL (3.5-5.0); Albumin Globulin Ratio 1.4 (1.0-2.8); Alkaline Phosphatase 92 U/L (38-126); Aspartate Aminotransferase 69 IU/L (17-59); BUN Creatinine Ratio 40.2 (6-22); Bilirubin Total 0.6 mg/dL (0.2-1.3); Blood Urea Nitrogen 37 mg/dL (9-20); Calcium 9.7 mg/dL (8.4-10.2); Carbon Dioxide 29 mmol/L (22-32); Chloride 98 mmol/L (98-107); Estimated Glomerular Filt Rate > 60 mL/min (>60); Globulin 3.3 g/dL (1.7-4.1); Glucose 114 mg/dL (70-100); HEMOLYSIS < 15 (0-50); Potassium 4.4 mmol/L (3.4-5.1); Sodium 140 mmol/L (137-145)
[2022-09-08 03:00] LABS: Labcorp Hemoglobin (Hb) A1c 6.3 % (4.8-5.6)
== END ==
PROVIDERS: PCP Physician Assistant; Visit Provider Physician Assistant
DX: M17.11 Unilateral primary osteoarthritis, right knee (principal); R74.8 Abnormal levels of other serum enzymes
CPT/HCPCS: 80053; 83036

== ENCOUNTER 2023-04-13 10:53 | Emergency (ER) | payer OTHER, SELFPAY ==
[2022-05-08 09:18] VITALS: BMI 38.7
[2023-04-13 11:05] VITALS: BP 140/91; PULSE 108; RESP 16; TEMP 36.4; O2SAT 96; BMI 38.2
--- NOTE | 2023-04-13 12:22 | ED_ITS ---
HPI - Extremity Injury (Lower) <Kait Hall PA-C - Last Filed: 04/13/23 13:41> General Chief Complaint: Extremity Injury, Lower Stated Complaint: sent by DR aguilar MRI of knee/blood in knee Time Seen by Provider: 04/13/23 12:20 History of Present Illness HPI Narrative: 47-year-old male with a history of diabetes and hypertension, who presents for further evaluation of a left leg injury. About a week ago he stepped on a Lego in his home and had immediate pain in his left mid foot. He was evaluated by his primary doctor 3 days ago and x-rays of the foot were negative for fracture. He went back the next day after experiencing an increase in pain up his leg into his knee with some accompanying swelling. He has been having trouble weight-bearing, he says he is a cane. He takes the occasional 200 mg of ibuprofen. He has been sitting with the leg elevated in front of him. He is currently not working due to an L and I injury of the other lower extremity. His doctor told him he had some blood in the left knee joint and suggested he needed an MRI and might be able to get it here at the hospital today. He denies other constitutional symptoms fever chills nausea or vomiting. Related Data Previous Rx's Medication Instructions Recorded atorvastatin 40 mg tablet 40 mg PO DAILY #30 tabs 05/10/22 metformin 500 mg tablet,extended See Rx Instructions .Route 05/23/22 release 24 hr .COMPLEX #270 tabs hydrochlorothiazide 25 mg tablet 25 mg PO DAILY #90 tabs 05/30/22 olmesartan 20 mg tablet 20 mg PO DAILY #90 tabs 05/30/22 metoprolol succinate 25 mg 25 mg PO BID #90 tabs 04/04/23 tablet,extended release 24 hr ibuprofen 600 mg tablet (IBU) 600 mg PO QID #30 tabs 04/13/23 Allergies Allergy/AdvReac Type Severity Reaction Status Date / Time lisinopril AdvReac Intermediate Cough Verified 04/12/23 16:06 Review of Systems <Kait Hall PA-C - Last Filed: 04/13/23 13:41> Review of Systems Narrative: GENERAL: Denies chills, fatigue, malaise, fever, sweats. HEENT: Denies sinus pain, ear pain, sore throat, difficulty swallowing, dizziness. RESPIRATORY: Denies dyspnea, cough, wheezing, hemoptysis, sputum. CARDIOVASCULAR: Denies chest pain, palpitations, orthopnea, edema, GASTROINTESTINAL: Denies nausea, vomiting, abdominal pain, diarrhea, constipation, melena. MUSCULOSKELETAL: L ventral midfoot achiness with the focus of his pain in the left anterior knee. SKIN: Denies rash, skin lesions, or other NEUROLOGIC: Denies weakness, headache, numbness, change in speech, confusion, seizures, incoordination. PSYCHIATRIC: No concerning psychosocial issues. Patient History <Kait Hall PA-C - Last Filed: 04/13/23 13:41> Medical History Right knee pain Left forearm pain Disorder of left rotator cuff Stress fracture of foot Essential hypertension Alcohol dependence Surgical History No history of previous surgery Family History Father Trauma Mother Medical history unknown Grandfather Heart disease Heart attack Family/Other Stroke Social History household members: significant other Smoking Status: Former smoker Smoking Status: Former smoker alcohol intake frequency: 3 or more drinks per day Substance Use Type: marijuana Exam <Kait Hall PA-C - Last Filed: 04/13/23 13:41> Narrative Exam Narrative: GEN: AOx3 in no acute distress, sitting in a wheelchair. EYES: Pupils are equal, round, and reactive to light and accommodation. Extraoccular muscles are intact bilaterally. There is no subconjunctival hemor rhage or exudate. CHEST: Lungs are clear to auscultation bilaterally and free of wheezes, rales, or rhonchi. Heart rate is regular rhythm, there are no murmurs, clicks, rubs, or gallops. There is no chest wall tenderness. EXT: Exam of both lower extremities shows mild swelling over the left anterior knee with diffuse tenderness to palpation distal to the patella over the patellar tendon, less tenderness over the lateral and medial joint lines. Discomfort with passive extension and flexion. Flexion at the left knee limited to approximately 110?. The calf is without tenderness. Pedal pulses are weak but present. Skin is warm slightly dusky over the dorsum. Toenails are intact. No significant tenderness over the plantar aspect of the left foot. SKIN: Warm, pink, and dry. No erythema or rash Initial Vital Signs Initial Vital Signs: Vital Signs Temperature 97.6 F 04/13/23 11:05 Pulse Rate 108 H 04/13/23 11:05 Respiratory Rate 16 04/13/23 11:05 Blood Pressure 140/91 H 04/13/23 11:05 Pulse Oximetry 96 04/13/23 11:05 Oxygen Delivery Method Room Air 04/13/23 11:05 <Sissy Ahmadi MD - Last Filed: 04/13/23 13:53> Initial Vital Signs Initial Vital Signs: Vital Signs Temperature 97.6 F 04/13/23 11:05 Pulse Rate 108 H 04/13/23 11:05 Respiratory Rate 16 04/13/23 11:05 Blood Pressure 140/91 H 04/13/23 11:05 Pulse Oximetry 96 04/13/23 11:05 Oxygen Delivery Method Room Air 04/13/23 11:05 Course <Kait Hall PA-C - Last Filed: 04/13/23 13:41> Vital Signs Vital signs: Vital Signs - 8 hr 04/13/23 11:05 Temperature 97.6 F Pulse Rate 108 H Respiratory Rate 16 Blood Pressure 140/91 H Pulse Oximetry 96 Oxygen Delivery Method Room Air <Sissy Ahmadi MD - Last Filed: 04/13/23 13:53> Vital Signs Vital signs: Vital Signs - 8 hr 04/13/23 11:05 Temperature 97.6 F Pulse Rate 108 H Respiratory Rate 16 Blood Pressure 140/91 H Pulse Oximetry 96 Oxygen Delivery Method Room Air MDM - Extremity Injury (Lower) <Kait Hall PA-C - Last Filed: 04/13/23 13:41> Imaging Data Extremity x-ray #1: Radiologist's Impression: PROCEDURE: XR KNEE LT 3V INDICATIONS: sig tenderness left knee and anterior tibia, effusion TECHNIQUE: 3 views of the knee were acquired. COMPARISON: [facility] ([facility] CR, XR KNEE RT 3V, 06/28/2022, 9:38. FINDINGS: Bones: No definite fractures or dislocations. Linear lucency in the proximal tibial diaphysis. Mild lateral subluxation of the patella. Medial and lateral compartment joint spaces are maintained. No suspicious bony lesions. Soft tissues: Small suprapatellar lipohemarthrosis. No suspicious soft tissue calcifications. Mild anterior soft tissue swelling. IMPRESSION: 1. No definite acute osseous abnormality. Linear lucency in the proximal tibial diaphysis may represent a vascular channel, less likely a fracture. 2. Small suprapatellar lipohemarthrosis. Recommend an MRI to evaluate for internal derangement. Dictated by: Brian Can M.D. on 04/12/2023 at 17:55 Approved by: Brian Can M.D. on 04/12/2023 at 18:04 Extremity x-ray #2: Radiologist's Impression: PROCEDURE: XR FOOT LT MIN 3V INDICATIONS: left foot injury; stepped on lego TECHNIQUE: 3 views of the foot were acquired. COMPARISON: None. FINDINGS: Bones: No fractures or dislocations. No suspicious bony lesions. Soft tissues: No tibiotalar joint effusion. Achilles tendon appears normal. IMPRESSION: No fracture. No acute osseous lesion. If symptoms and/or clinical suspicion for pathology persists, further assessment with repeat radiographs (7-10 days) or advanced imaging (e.g. CT, MRI or bone scan) should be considered. Dictated by: Leigh Ann Braun MD, PhD on 04/10/2023 at 13:22 Approved by: Leigh Ann Braun MD, PhD on 04/10/2023 at 13:22 [facility] Narrative Medical decision making narrative: MDM * differential diagnosis includes but not limited to ligament strain, hemarthrosis, meniscal injury, * Prior records reviewed: Xrays and PMD note reviewed. * My lab interpretation: NA * My imgaing interpretation: High suspicion on x-ray for hemarthrosis without significant swelling on exam. Low suspicion for need for arthrocentesis. No bony irregularities. * Clinical Decision Rules/Scores evaluated: * Independent discussions with: ED Course: Patient has real difficulty ambulating or weight-bearing. But I do not feel there is any indication for further treatment in the emergency department today. Shared Decision Making: We discussed the probability that given this is a soft tissue injury that it will resolve given good rest, NSAID use, and limiting weight-bearing, that blood in the joint may resorb or it may not. We talked about getting the knee joint above the level of the heart when he elevates. I am also putting him in a knee immobilizer with crutch training and asking him to be nonweightbearing for at least the next 3-4 days. If he does notice improvement with this regimen I have encouraged him to continue home care, but if the severe knee pain persists to seek further imaging through his primary care provider. Patient verbalized agreement with the plan. Social Considerations: None Disposition: Discharged to home. Prescription for ibuprofen sent to his local pharmacy. Discharge Plan Departure Patient Disposition: Home Clinical Impression: Derangement of knee, left, Foot and ankle pain Instructions: DI for Knee Pain Activity Restrictions/Additional Instructions: Your x-rays do not indicate any bony abnormalities. You do have some blood in the left knee joint, that will likely resolve on its own with time. In the meantime I recommend you take 600 mg of ibuprofen 4 times a day after food, and elevate that leg above the level of your heart when possible, which means prompting some pillows underneath the leg and knee when your in a reclined position. It may be that he will need some further imaging as an outpatient to assess the soft tissue. Please try to be nonweightbearing for a few days with the crutches, and use the knee immobilizer for comfort while you're your walking. Follow-up with your primary care provider if you do not see improvement after 3-4 days. I do not expect he will feel normal in that time but if you are improving that is a good sign. Return to the ER for any significant increase in pain or swelling in the knee. Prescriptions: New ibuprofen [IBU] 600 mg tablet 600 mg PO QID Qty: 30 0RF No Action metformin 500 mg tablet extended release 24 hr See Rx Instructions .ROUTE .COMPLEX Qty: 270 3RF Dose Instruction: TAKE TWO TABLETS BY MOUTH EVERY MORNING AND TAKE ONE TABLET EVERY EVENING Rx Instructions: TAKE TWO TABLETS BY MOUTH EVERY MORNING AND TAKE ONE TABLET EVERY EVENING metoprolol succinate 25 mg tablet extended release 24 hr 25 mg PO BID Qty: 90 1RF atorvastatin 40 mg tablet 40 mg PO DAILY Qty: 30 11RF hydrochlorothiazide 25 mg tablet 25 mg PO DAILY Qty: 90 3RF olmesartan 20 mg tablet 20 mg PO DAILY Qty: 90 3RF Referrals: Harriet Valenzuela PA-C [Primary Care Provider] - Stand Alone Forms: Patient Portal/API ED Sign-out <Sissy Ahmadi MD - Last Filed: 04/13/23 13:53> Cosign ED Attending Cosignature Attestation: I did not see this patient. I was available all times for consultation.
[2023-04-13 13:22] VITALS: BP 139/85; PULSE 92; RESP 20; O2SAT 100
== END 2023-04-13 13:23 | disposition home or self-care (01) ==
PROVIDERS: Emergency Provider Physician Assistant; PCP Physician Assistant
DX: M23.92 Unspecified internal derangement of left knee (principal); M79.672 Pain in left foot; M25.572 Pain in left ankle and joints of left foot
CPT/HCPCS: 99281; 99283

== ENCOUNTER → 2023-05-21 11:19 | Outpatient (CLI) | payer OTHER, MEDICAID, SELFPAY ==
[2022-05-08 09:18] VITALS: BMI 38.7
[2023-05-21 19:55] LABS: Creatinine Urine Random 325.1 mg/dL
[2023-05-21 19:58] LABS: Microalbumi Creatinin Ratio Ur 21.2 ug/mg CR (<30); Microalbumin Urine Random 6.9 mg/dL (0-1.6)
== END ==
PROVIDERS: PCP Physician Assistant; Visit Provider Physician Assistant
DX: E11.9 Type 2 diabetes mellitus without complications (principal)
CPT/HCPCS: 82043; 82570; 83036

== ENCOUNTER → 2023-06-18 11:24 | Outpatient (CLI) | payer OTHER, MEDICAID, SELFPAY ==
[2022-05-08 09:18] VITALS: BMI 38.7
[2023-06-18 19:15] LABS: Add Manual Diff / Slide Review NO; Basophils Absolute Auto 0 /uL (0-100); Basophils Percent Auto 0.7 % (0-2); Eosinophils Absolute Auto 200 /uL (0-450); Eosinophils Percent Auto 3.1 % (2-4); Hematocrit 38.4 % (41-53); Hemoglobin 12.8 g/dL (13.5-17.5); Lymphocytes Absolute Auto 1300 /uL (1100-4500); Lymphocytes Percent Auto 25.3 % (25-40); Mean Corpuscular HGB Conc 33.2 % (30-36); Mean Corpuscular Hemoglobin 34.1 PG (26-34); Mean Corpuscular Volume 102.6 fL (80-100); Monocytes Absolute Auto 300 /uL (0-900); Monocytes Percent Auto 5.8 % (3-14); Neutrophils Absolute Auto 3400 /uL (1500-7000); Neutrophils Percent Auto 65.1 % (50-75); Platelet Count 205 X10^3/uL (150-400); Red Blood Cell Count 3.74 X10^6/uL (4.5-5.9); Red Cell Distribution Width 14.8 % (11.6-14.8); White Blood Cell Count 5.2 X10^3/uL (4.5-11.0)
[2023-06-18 19:16] LABS: HEMOLYSIS < 15 (0-50); Iron 193 ug/dL (49-181)
[2023-06-18 19:22] LABS: Alanine Aminotransferase 108 IU/L (<50); Albumin 4.7 g/dL (3.5-5.0); Albumin Globulin Ratio 1.5 (1.0-2.8); Alkaline Phosphatase 98 U/L (38-126); Aspartate Aminotransferase 109 IU/L (17-59); BUN Creatinine Ratio 20.9 (6-22); Bilirubin Total 0.7 mg/dL (0.2-1.3); Blood Urea Nitrogen 28 mg/dL (9-20); C-Reactive Protein Quant 0.8 mg/dL (<1.0); Calcium 9.8 mg/dL (8.4-10.2); Carbon Dioxide 23 mmol/L (22-32); Chloride 105 mmol/L (98-107); Estimated Glomerular Filt Rate > 60 mL/min (>60); Globulin 3.1 g/dL (1.7-4.1); Glucose 161 mg/dL (70-100); HEMOLYSIS < 15 (0-50); Lipase 418 U/L (23-300); Potassium 4.7 mmol/L (3.4-5.1); Sodium 141 mmol/L (137-145); Total Protein 7.8 g/dL (6.3-8.2)
[2023-06-18 19:27] LABS: Percent Iron Saturation 61 % (20-50); Total Iron Binding Capacity 316 ug/dL (261-462); Transferrin 289 mg/dL (206-381)
[2023-06-18 19:36] LABS: Erythrocyte Sedimentation Rate 18 MM/HR (0-15)
[2023-06-18 19:49] LABS: TSH w/ Reflex to FT4 2.78 uIU/mL (0.47-4.68)
[2023-06-18 20:28] LABS: Hepatitis B Surface Antigen NEGATIVE s/c (NEGATIVE)
[2023-06-18 20:42] LABS: Ferritin 1950 ng/mL (18-464)
[2023-06-20 00:27] LABS: Hepatitis B Core Antibody Negative (Negative)
[2023-06-20 05:52] LABS: Hepatitis B Surf Ab Qualitativ Non Reactive (.)
== END ==
PROVIDERS: PCP Physician Assistant; Visit Provider Family Medicine
DX: R74.8 Abnormal levels of other serum enzymes (principal); E11.9 Type 2 diabetes mellitus without complications; I10 Essential (primary) hypertension; R00.0 Tachycardia, unspecified; F10.20 Alcohol dependence, uncomplicated; R79.89 Other specified abnormal findings of blood chemistry; E78.2 Mixed hyperlipidemia
CPT/HCPCS: 80053; 82728; 83036; 83540; 83550; 83690; 84443; 85025; 85651; 86140; 86704; 86706; 87340

== ENCOUNTER → 2023-06-27 10:09 | Outpatient (CLI) | payer OTHER, MEDICAID, SELFPAY ==
[2022-05-08 09:18] VITALS: BMI 38.7
[2023-06-29 16:58] LABS: Fecal Immunochemical Test Negative (Negative)
== END ==
PROVIDERS: PCP Physician Assistant; Visit Provider Physician Assistant
DX: D64.9 Anemia, unspecified (principal)
CPT/HCPCS: 82274; 83036

== ENCOUNTER → 2023-07-02 11:58 | Outpatient (CLI) | payer OTHER, MEDICAID, SELFPAY ==
[2022-05-08 09:18] VITALS: BMI 38.7
[2023-07-02 21:15] LABS: Hep C Virus Ab w/Reflex Quant NEGATIVE s/c (NEGATIVE)
[2023-07-02 21:27] LABS: Folate 5.2 ng/mL (2.76-20.0); Vitamin B12 Reflex MMA if <400 287 pg/mL (239-931)
[2023-07-05 23:13] LABS: Methylmalonic Acid,Serum 218 nmol/L (0-378)
== END ==
PROVIDERS: PCP Physician Assistant; Visit Provider Family Medicine
DX: D64.9 Anemia, unspecified (principal); R16.0 Hepatomegaly, not elsewhere classified; K76.9 Liver disease, unspecified
CPT/HCPCS: 82607; 82746; 83921; 86803

== ENCOUNTER 2023-07-06 14:13 | Emergency (ER) | payer OTHER, MEDICAID, SELFPAY ==
[2022-05-08 09:18] VITALS: BMI 38.7
[2023-07-06 14:17] VITALS: BP 193/106; PULSE 92; RESP 16; TEMP 36.2; O2SAT 100; BMI 38.1
--- NOTE | 2023-07-06 14:23 | ED_ITS ---
HPI - Extremity Problem <Mk Franco PA-C - Last Filed: 07/06/23 16:37> General Chief complaint: Extremity Problem,Nontraumatic Stated complaint: L arm pain Time Seen by Provider: 07/06/23 14:23 Source: patient Mode of arrival: Ambulatory History of Present Illness HPI Narrative: This is a 47-year-old male presents emergency department due to left shoulder pain onset 3 days ago as well as now complaining of left hand pain and swelling. He denies any trauma to the left shoulder left hand. Denies any fevers but does state that the hand is quite swollen and painful when he tries to close it. Denies any chest pain or other systemic symptoms. Related Data Home Medications Medication Instructions Recorded Confirmed amoxicillin 500 mg-potassium 1 tab PO BID 06/08/23 06/27/23 clavulanate 125 mg tablet metoprolol succinate 25 mg 25 mg PO BID 06/08/23 06/27/23 tablet,extended release 24 hr Previous Rx's Medication Instructions Recorded ibuprofen 600 mg tablet (IBU) 600 mg PO QID #30 tabs 04/13/23 atorvastatin 40 mg tablet 40 mg PO BEDTIME #90 tabs 05/21/23 mupirocin 2 % topical ointment 1 applic topical BID #22 grams 05/21/23 hydrochlorothiazide 25 mg tablet 25 mg PO DAILY #90 tabs 06/05/23 olmesartan 20 mg tablet 20 mg PO DAILY #90 tabs 06/05/23 metformin 500 mg tablet,extended 500 mg PO .COMPLEX #90 tabs 06/11/23 release 24 hr semaglutide 14 mg tablet 14 mg PO DAILY for diabetes. take 06/11/23 every day #30 tabs semaglutide 3 mg tablet 3 mg PO DAILY for diabetes. take 06/11/23 every day 30 days #30 tabs semaglutide 7 mg tablet 7 mg PO DAILY for diabetes. take 06/11/23 every day #30 tabs sitagliptin phosphate 100 mg 100 mg PO DAILY diabetes. take 06/19/23 tablet (Januvia) every day. #30 tabs probenecid 500 mg-colchicine 0.5 1 tab PO BID 7 days #14 tabs 07/06/23 mg tablet probenecid 500 mg-colchicine 0.5 1 tab PO BID 7 days #14 tabs 02/02/24 mg tablet Allergies Allergy/AdvReac Type Severity Reaction Status Date / Time lisinopril AdvReac Intermediate Cough Verified 06/27/23 09:48 Review of Systems <Mk Franco PA-C - Last Filed: 07/06/23 16:37> Review of Systems Narrative: GENERAL: Denies chills, fatigue, malaise, fever, sweats. HEENT: Denies sinus pain, ear pain, sore throat, difficulty swallowing, dizziness. RESPIRATORY: Denies dyspnea, cough, wheezing, hemoptysis, sputum. CARDIOVASCULAR: Denies chest pain, palpitations, orthopnea, edema, GASTROINTESTINAL: Denies nausea, vomiting, abdominal pain, diarrhea, constipation, melena. : Denies dysuria, frequency, incontinence, hematuria, urinary retention. MUSCULOSKELETAL: Reports left shoulder, left hand pain as well as left hand swelling SKIN: Denies rash, skin lesions, or other NEUROLOGIC: Denies weakness, headache, numbness, change in speech, confusion, seizures, incoordination. PSYCHIATRIC: No concerning psychosocial issues. 12 point review of systems is negative except for those stated above Patient History <Mk Franco PA-C - Last Filed: 07/06/23 16:37> Medical History Right knee pain Left forearm pain Disorder of left rotator cuff Stress fracture of foot Essential hypertension Alcohol dependence Surgical History No history of previous surgery Family History Father Trauma Mother Medical history unknown Grandfather Heart disease Heart attack Family/Other Stroke Social History household members: significant other Smoking Status: Former smoker Smoking Status: Former smoker alcohol intake frequency: 3 or more drinks per day Substance Use Type: marijuana Exam <Mk Franco PA-C - Last Filed: 07/06/23 16:37> Narrative Exam Narrative: GENERAL: Well-developed patient, in mild distress. HEAD: Atraumatic. Normocephalic. EYES: Pupils equal round and reactive. Extraocular motions intact. No scleral icterus. No injection or drainage. ENT: Nose without bleeding, purulent drainage. Throat without erythema, tonsillar hypertrophy or exudate. Airway patent. NECK: Trachea midline. Non tender EXTREMITIES: Tenderness to palpation to the anterior left shoulder with some pain with range of motion. Also has left hand diffuse swelling no erythema or warmth to the touch. Tenderness with the palpation. NEURO: AOx3. SKIN: No rash or erythema of visible areas Initial Vital Signs Initial Vital Signs: Vital Signs Temperature 97.2 F L 07/06/23 14:17 Pulse Rate 92 H 07/06/23 14:17 Respiratory Rate 16 07/06/23 14:17 Blood Pressure 193/106 H 07/06/23 14:17 Pulse Oximetry 100 07/06/23 14:17 Oxygen Delivery Method Room Air 07/06/23 14:17 <Dominic Bryan DO - Last Filed: 07/06/23 17:05> Initial Vital Signs Initial Vital Signs: Vital Signs Temperature 97.2 F L 07/06/23 14:17 Pulse Rate 92 H 07/06/23 14:17 Respiratory Rate 16 07/06/23 14:17 Blood Pressure 193/106 H 07/06/23 14:17 Pulse Oximetry 100 07/06/23 14:17 Oxygen Delivery Method Room Air 07/06/23 14:17 Course <Mk Franco PA-C - Last Filed: 07/06/23 16:37> Orders Ordered: ED Orders 07/06/23 14:41 US periph venous up extrem lt Stat Discontinued Medications Ibuprofen (Ibuprofen 400 Mg Tablet) 800 mg PO NOW ONE Stop: 07/06/23 15:54 Last Admin: 07/06/23 15:56 Dose: 800 mg Documented By: FAN Vital Signs Vital signs: Vital Signs - 8 hr 07/06/23 14:17 07/06/23 16:36 07/06/23 16:40 Temperature 97.2 F L Pulse Rate 92 H 94 H Pulse Rate [Left Brachial] 86 Respiratory Rate 16 14 Blood Pressure 193/106 H 155/99 H Pulse Oximetry 100 96 Oxygen Delivery Method Room Air Room Air <Dominic Bryan DO - Last Filed: 07/06/23 17:05> Orders Ordered: ED Orders 07/06/23 14:41 US periph venous up extrem lt Stat Discontinued Medications Ibuprofen (Ibuprofen 400 Mg Tablet) 800 mg PO NOW ONE Stop: 07/06/23 15:54 Last Admin: 07/06/23 15:56 Dose: 800 mg Documented By: FAN Vital Signs Vital signs: Vital Signs - 8 hr 07/06/23 14:17 07/06/23 16:36 07/06/23 16:40 Temperature 97.2 F L Pulse Rate 92 H 94 H Pulse Rate [Left Brachial] 86 Respiratory Rate 16 14 Blood Pressure 193/106 H 155/99 H Pulse Oximetry 100 96 Oxygen Delivery Method Room Air Room Air MDM - Extremity (Nontraumatic) <Mk Franco PA-C - Last Filed: 07/06/23 16:37> Imaging Data LUE US : Radiologist's Impression: [address] [address] Ultrasound Report Signed Patient: Kem Monsalve MR#: [id number] : 1975 Acct:[id number] Age/Sex: 47 / M Date of Service: 07/06/23 Loc: ED Accession Number: [id number] Procedure: US periph venous up extrem lt Ordering Provider: Mk Franco P.A-C PROCEDURE: US PERIPH VENOUS UP EXTREM LT INDICATIONS: LUE swelling TECHNIQUE: Real-time imaging, as well as color and pulse Doppler interrogation, was performed of the upper extremity deep veins from the inferior neck to the antecubital fossa. COMPARISON: None. FINDINGS: The internal jugular vein, visualized portions of the subclavian vein, axillary, and brachial veins are free of intraluminal thrombus. Where physically possible, the veins are normally compressible. Color and pulse Doppler demonstrate normal intraluminal flow, with expected phasicity and pulsatility. Additional scanning of the cephalic and basilic veins of the superficial system demonstrates normal compressibility, without thrombus. IMPRESSION: No findings of upper extremity deep venous thrombosis can be seen. Dictated by: Priscilla Toscano M.D. on 07/06/2023 at 16:09 Approved by: Priscilla Toscano M.D. on 07/06/2023 at 16:09 [facility] Narrative Medical decision making narrative: ED course: This is a 47-year-old male presenting to the emergency department complaining of left upper extremity swelling and pain. Pain starts in his left shoulder although he was a chronic history of left shoulder pain. He was also noticing pain in his left hand with some diffuse swelling. Left upper extremity ultrasound ordered to rule out DVT which was negative. Patient does have a history of gout and this may be what is happening at this time. No trauma and shared decision-making utilized and no x-rays ordered. We will attempt supportive care. CC: Left hand pain Complicating co-morbidities: Chronic left shoulder pain Data collected from: Previous notes Medical records reviewed: Patient was seen for left knee injury. History of left rotator cuff pain and hypertension and alcohol dependence. Differential considered, but not limited to: Gout, DVT, infection, abscess, rotator cuff strain, fracture Exam documented above, pertinent findings include: Attempted tenderness to palpation and swelling to the left hand Lab Test results independently reviewed as above. Pertinent findings: None obtained Imaging studies independently reviewed: Left upper extremity ultrasound negative for DVT Scores Used: None MIPS Elements: None Consultations: None Treatments: None Re-evaluations: None Discussion: Discussed plan with the patient was comfortable with the plan Diagnosis: Left hand pain Disposition: see below, along with detailed discharge instructions that have been reviewed with patient as well as indications for ED re-evaluation and additional outpatient follow up Discharge Plan Departure Patient Disposition: Home Clinical Impression: Hand pain, left Activity Restrictions/Additional Instructions: Thank you for coming to the [facility] Emergency Department today. As we discussed your ultrasound was negative for blood clot. This may be a worsening flare-up of gout. Please take the medication as prescribed and follow up with the primary care doctor Please return to the emergency department if you develop any fevers, numbness, or any other concerning signs or symptoms. I sent your medication to [facility] in [place]. I hope you feel better soon. Please follow up with your primary care provider within a week if your symptoms continue. If you do not have a primary care provider please contact the [facility] Resource line at [phone]. They will ask some questions about your medical history and help you get set up with a provider in the community. Prescriptions: New probenecid-colchicine 500-0.5 mg tablet 1 tab PO BID 7 Days Qty: 14 0RF probenecid-colchicine 500-0.5 mg tablet 1 tab PO BID 7 Days Qty: 14 0RF No Action hydrochlorothiazide 25 mg tablet 25 mg PO DAILY Qty: 90 1RF olmesartan 20 mg tablet 20 mg PO DAILY Qty: 90 1RF metformin 500 mg tablet extended release 24 hr 500 mg PO .COMPLEX Qty: 90 1RF Hold Instructions: check with Nadya before refill Rx Instructions: 500 mg orally-- 2 tabs in am and 1 in pm; needs to be seen in 60 days or less by PCP semaglutide 3 mg tablet 3 mg PO DAILY 30 Days Qty: 30 0RF Hold Instructions: insurance declined: try other meds first Rx Instructions: 3mg QD for 30 days then increase to 7mg tablets semaglutide 7 mg tablet 7 mg PO DAILY Qty: 30 0RF Hold Instructions: insurance declined: try other meds first Rx Instructions: Release date 07/09/23; Take 7mg QD for 30 days then increase to 14mg tablets semaglutide 14 mg tablet 14 mg PO DAILY Qty: 30 5RF Hold Instructions: insurance declined - try other meds first ibuprofen [IBU] 600 mg tablet 600 mg PO QID Qty: 30 0RF atorvastatin 40 mg tablet 40 mg PO BEDTIME Qty: 90 1RF mupirocin 2 % ointment 1 applic topical BID Qty: 22 0RF metoprolol succinate 25 mg tablet extended release 24 hr 25 mg PO BID amoxicillin-pot clavulanate 500-125 mg tablet 1 tab PO BID Januvia 100 mg tablet 100 mg PO DAILY Qty: 30 6RF Rx Instructions: stop metformin when starting januvia Referrals: Harriet Valenzuela PA-C [Primary Care Provider] - Stand Alone Forms: Patient Portal/API ED Sign-out <Dominic Bryan, DO - Last Filed: 07/06/23 17:05> Cosign [facility]ending [facility]: Dr Bryan Co-Sign Statement: I was available for consultation during this patient's emergency department visit. This chart is signed by myself for administrative purposes only. I did not have direct contact with this patient during this visit. They were seen independently by the APC.
--- NOTE | 2023-07-06 14:41 | DI.US.S_ITS ---
PROCEDURE: US PERIPH VENOUS UP EXTREM LT INDICATIONS: LUE swelling TECHNIQUE: Real-time imaging, as well as color and pulse Doppler interrogation, was performed of the upper extremity deep veins from the inferior neck to the antecubital fossa. COMPARISON: None. FINDINGS: The internal jugular vein, visualized portions of the subclavian vein, axillary, and brachial veins are free of intraluminal thrombus. Where physically possible, the veins are normally compressible. Color and pulse Doppler demonstrate normal intraluminal flow, with expected phasicity and pulsatility. Additional scanning of the cephalic and basilic veins of the superficial system demonstrates normal compressibility, without thrombus. IMPRESSION: No findings of upper extremity deep venous thrombosis can be seen. Dictated by: Priscilla Toscano M.D. on 07/06/2023 at 16:09 Approved by: Priscilla Toscano M.D. on 07/06/2023 at 16:09
[2023-07-06] MEDS: IBUPROFEN 400 MG TABLET 800 MG PO (15:56)
[2023-07-06 16:36] VITALS: BP 155/99; PULSE 94; RESP 14; O2SAT 96
[2023-07-06 16:40] VITALS: PULSE 86
== END 2023-07-06 16:43 | disposition home or self-care (01) ==
PROVIDERS: Emergency Provider Physician Assistant Medical; PCP Physician Assistant
DX: M79.642 Pain in left hand (principal); Z79.899 Other long term (current) drug therapy
CPT/HCPCS: 93971; 99283

== ENCOUNTER → 2023-07-18 11:12 | Outpatient (CLI) | payer OTHER, MEDICAID, SELFPAY ==
[2022-05-08 09:18] VITALS: BMI 38.7
[2023-07-18 18:49] LABS: INR 1.1 (0.9-1.3); Prothrombin Time 12.3 SECONDS (9.4-12.5)
[2023-07-18 19:59] LABS: Add Manual Diff / Slide Review NO; Alanine Aminotransferase 44 IU/L (<50); Albumin 4.2 g/dL (3.5-5.0); Albumin Globulin Ratio 1.3 (1.0-2.8); Alkaline Phosphatase 114 U/L (38-126); Aspartate Aminotransferase 36 IU/L (17-59); BUN Creatinine Ratio 14.7 (6-22); Basophils Absolute Auto 100 /uL (0-100); Basophils Percent Auto 0.6 % (0-2); Bilirubin Total 0.6 mg/dL (0.2-1.3); Blood Urea Nitrogen 15 mg/dL (9-20); Carbon Dioxide 26 mmol/L (22-32); Chloride 99 mmol/L (98-107); Eosinophils Absolute Auto 400 /uL (0-450); Eosinophils Percent Auto 3.1 % (2-4); Estimated Glomerular Filt Rate > 60 mL/min (>60); Globulin 3.2 g/dL (1.7-4.1); Glucose 128 mg/dL (70-100); HEMOLYSIS < 15 (0-50); Hemoglobin 12.4 g/dL (13.5-17.5); Lymphocytes Absolute Auto 1500 /uL (1100-4500); Lymphocytes Percent Auto 12.8 % (25-40); Mean Corpuscular HGB Conc 34.5 % (30-36); Mean Corpuscular Hemoglobin 33.7 PG (26-34); Mean Corpuscular Volume 97.7 fL (80-100); Monocytes Absolute Auto 800 /uL (0-900); Monocytes Percent Auto 6.6 % (3-14); Neutrophils Absolute Auto 8900 /uL (1500-7000); Neutrophils Percent Auto 76.9 % (50-75); Platelet Count 405 X10^3/uL (150-400); Potassium 3.6 mmol/L (3.4-5.1); Red Blood Cell Count 3.68 X10^6/uL (4.5-5.9); Red Cell Distribution Width 14.4 % (11.6-14.8); Sodium 139 mmol/L (137-145); Total Protein 7.4 g/dL (6.3-8.2); White Blood Cell Count 11.6 X10^3/uL (4.5-11.0)
[2023-07-18 20:16] LABS: Vitamin D 25 Hydroxy (D3) < 12.8 ng/mL (30.0-100.0)
[2023-07-18 20:34] LABS: Thyroid Stimulating Hormone 2.35 uIU/mL (0.47-4.68)
[2023-07-18 20:58] LABS: Folate 4.8 ng/mL (2.76-20.0); Vitamin B12 496 pg/mL (239-931)
[2023-07-19 19:29] LABS: Hep C Virus Ab w/Reflex Quant NEGATIVE s/c (NEGATIVE)
[2023-07-20 03:19] LABS: Hepatitis A Antibody Total Negative (Negative)
[2023-07-20 04:09] LABS: Alpha 1 Anti Trypsin 225 mg/dL (101-187); Ceruloplasmin 27.2 mg/dL (16.0-31.0)
[2023-07-20 06:20] LABS: Alpha Fetoprotein 2.7 ng/mL (0.0-6.9)
[2023-07-20 19:09] LABS: IgG Subclass 1 517 mg/dL (248-810); IgG Subclass 2 282 mg/dL (130-555); IgG Subclass 3 46 mg/dL (15-102); IgG Subclass 4 20 mg/dL (2-96); IgG Total 854 mg/dL (603-1613)
[2023-07-25 16:01] LABS: ANA Screen, IFA Negative (.)
== END ==
PROVIDERS: PCP Physician Assistant; Visit Provider Internal Medicine
DX: K70.9 Alcoholic liver disease, unspecified (principal)
CPT/HCPCS: 80053; 81256; 82103; 82105; 82306; 82390; 82607; 82746; 82784; 82787; 84443; 85025; 85610; 86038; 86708; 86803

== ENCOUNTER → 2023-08-10 09:00 | Outpatient (CLI) | payer OTHER, MEDICAID, SELFPAY ==
[2023-07-26 11:16] VITALS: BMI 38.7
--- NOTE | 2023-08-10 | DI.US.S_ITS ---
PROCEDURE: US ABDOMEN LIMITED INDICATIONS: Alcoholic liver disease, unspecified TECHNIQUE: Real-time scanning was performed of the abdominal and retroperitoneal organs, with image documentation. COMPARISON: [facility], , US ABDOMEN LIMITED, 06/20/2022, 12:00. FINDINGS: Evaluation is limited secondary to patient body habitus and bowel gas. Liver: Liver is mildly enlarged measuring 19.3 cm and course in echotexture. Liver parenchyma is diffusely echogenic. No nodular contour. Main portal vein is patent with hepatopedal flow. No sonographic evidence of a solid mass. Gallbladder: No stones or sludge. Normal wall thickness measuring 2 mm. No pericholecystic fluid. Biliary ducts: Intrahepatic bile ducts are non-dilated. Extrahepatic bile duct caliber measures 5.7 mm. Normal is 6-7 mm or less in diameter, or 10 mm or less post-cholecystectomy. Pancreas: Not well seen secondary to bowel gas. IMPRESSION: Evaluation is limited secondary to bowel gas and patient body habitus. 1. Liver parenchyma is diffusely echogenic which may be seen in the setting of parenchymal disease such as steatosis. 2. No sonographic evidence of a solid mass; however, the evaluation is limited secondary to echogenic parenchyma. If there is clinical suspicion, consider cross-sectional imaging. 3. Normal gallbladder. Dictated by: Brian Can M.D. on 08/10/2023 at 10:19 Approved by: Brian Can M.D. on 08/10/2023 at 10:23
== END ==
PROVIDERS: PCP Physician Assistant; Referring Provider Internal Medicine; Visit Provider Internal Medicine
DX: K70.9 Alcoholic liver disease, unspecified (principal)
CPT/HCPCS: 76705

== ENCOUNTER → 2023-08-21 12:01 | Outpatient (CLI) | payer OTHER, MEDICAID, SELFPAY ==
[2023-08-14 11:53] VITALS: BMI 38.7
[2023-08-21 18:58] LABS: Add Manual Diff / Slide Review NO; Basophils Absolute Auto 100 /uL (0-100); Basophils Percent Auto 0.8 % (0-2); Eosinophils Absolute Auto 600 /uL (0-450); Eosinophils Percent Auto 6.2 % (2-4); Hematocrit 37.2 % (41-53); Hemoglobin 12.9 g/dL (13.5-17.5); Lymphocytes Absolute Auto 1800 /uL (1100-4500); Lymphocytes Percent Auto 17.2 % (25-40); Mean Corpuscular HGB Conc 34.8 % (30-36); Mean Corpuscular Hemoglobin 31.8 PG (26-34); Mean Corpuscular Volume 91.6 fL (80-100); Monocytes Absolute Auto 800 /uL (0-900); Monocytes Percent Auto 8.3 % (3-14); Neutrophils Absolute Auto 6900 /uL (1500-7000); Neutrophils Percent Auto 67.5 % (50-75); Platelet Count 240 X10^3/uL (150-400); Red Blood Cell Count 4.06 X10^6/uL (4.5-5.9); Red Cell Distribution Width 14.5 % (11.6-14.8); White Blood Cell Count 10.3 X10^3/uL (4.5-11.0)
[2023-08-21 19:30] LABS: Alanine Aminotransferase 447 IU/L (<50); Albumin 3.9 g/dL (3.5-5.0); Albumin Globulin Ratio 1.3 (1.0-2.8); Alkaline Phosphatase 116 U/L (38-126); Aspartate Aminotransferase 312 IU/L (17-59); Bilirubin Total 1.8 mg/dL (0.2-1.3); Blood Urea Nitrogen 19 mg/dL (9-20); Calcium 9.7 mg/dL (8.4-10.2); Carbon Dioxide 26 mmol/L (22-32); Chloride 95 mmol/L (98-107); Estimated Glomerular Filt Rate > 60 mL/min (>60); Gamma Glutamyl Transpeptidase 116 U/L (15-73); Glucose 289 mg/dL (70-100); HEMOLYSIS < 15 (0-50); Lactate Dehydrogenase 390 U/L (120-246); Potassium 3.1 mmol/L (3.4-5.1); Sodium 134 mmol/L (137-145); Total Protein 6.9 g/dL (6.3-8.2)
[2023-08-21 20:24] LABS: Erythrocyte Sedimentation Rate 30 MM/HR (0-15)
[2023-08-21 20:28] LABS: Folate 14.9 ng/mL (2.76-20.0); Vitamin B12 860 pg/mL (239-931)
[2023-08-21 20:48] LABS: Ferritin 1960 ng/mL (18-464)
[2023-08-23 16:59] LABS: Erythropoietin 32.6 mIU/mL (2.6-18.5)
== END ==
PROVIDERS: PCP Physician Assistant; Visit Provider Internal Medicine Hematology & Oncology
DX: Z14.8 Genetic carrier of other disease (principal); E78.49 Other hyperlipidemia; I10 Essential (primary) hypertension; E11.8 Type 2 diabetes mellitus with unspecified complications; F10.10 Alcohol abuse, uncomplicated; R79.89 Other specified abnormal findings of blood chemistry
CPT/HCPCS: 80053; 82607; 82668; 82728; 82746; 82977; 83615; 84550; 85025; 85651

== ENCOUNTER → 2023-09-04 10:56 | Outpatient (CLI) | payer OTHER, MEDICAID, SELFPAY ==
[2023-08-21 12:14] VITALS: BMI 38.7
[2023-09-04 19:32] LABS: Add Manual Diff / Slide Review NO; Basophils Absolute Auto 100 /uL (0-100); Eosinophils Absolute Auto 400 /uL (0-450); Eosinophils Percent Auto 5.9 % (2-4); Hematocrit 38.2 % (41-53); Hemoglobin 12.7 g/dL (13.5-17.5); Lymphocytes Absolute Auto 1700 /uL (1100-4500); Lymphocytes Percent Auto 25.6 % (25-40); Mean Corpuscular HGB Conc 33.3 % (30-36); Mean Corpuscular Hemoglobin 31.2 PG (26-34); Mean Corpuscular Volume 93.7 fL (80-100); Monocytes Absolute Auto 600 /uL (0-900); Monocytes Percent Auto 8.4 % (3-14); Neutrophils Absolute Auto 3900 /uL (1500-7000); Neutrophils Percent Auto 59.1 % (50-75); Platelet Count 291 X10^3/uL (150-400); Red Blood Cell Count 4.07 X10^6/uL (4.5-5.9); Red Cell Distribution Width 15.3 % (11.6-14.8); White Blood Cell Count 6.6 X10^3/uL (4.5-11.0)
[2023-09-04 19:37] LABS: Erythrocyte Sedimentation Rate 35 MM/HR (0-15)
[2023-09-04 20:46] LABS: Ferritin 2200 ng/mL (18-464)
== END ==
PROVIDERS: PCP Physician Assistant; Visit Provider Internal Medicine Hematology & Oncology
DX: Z14.8 Genetic carrier of other disease (principal); I10 Essential (primary) hypertension; E78.49 Other hyperlipidemia; E11.8 Type 2 diabetes mellitus with unspecified complications; F10.10 Alcohol abuse, uncomplicated; R79.89 Other specified abnormal findings of blood chemistry
CPT/HCPCS: 82728; 85025; 85651

== ENCOUNTER → 2023-09-25 10:56 | Outpatient (CLI) | payer OTHER, MEDICAID, SELFPAY ==
[2023-08-21 12:14] VITALS: BMI 38.7
[2023-09-25 20:07] LABS: Add Manual Diff / Slide Review NO; Basophils Absolute Auto 0 /uL (0-100); Basophils Percent Auto 0.5 % (0-2); Eosinophils Absolute Auto 100 /uL (0-450); Eosinophils Percent Auto 1.3 % (2-4); Hematocrit 41.9 % (41-53); Hemoglobin 14.5 g/dL (13.5-17.5); Lymphocytes Absolute Auto 1200 /uL (1100-4500); Mean Corpuscular HGB Conc 34.6 % (30-36); Mean Corpuscular Hemoglobin 31.7 PG (26-34); Mean Corpuscular Volume 91.6 fL (80-100); Monocytes Absolute Auto 600 /uL (0-900); Monocytes Percent Auto 8.2 % (3-14); Neutrophils Absolute Auto 5800 /uL (1500-7000); Platelet Count 213 X10^3/uL (150-400); Red Blood Cell Count 4.57 X10^6/uL (4.5-5.9); Red Cell Distribution Width 15.2 % (11.6-14.8); White Blood Cell Count 7.8 X10^3/uL (4.5-11.0)
[2023-09-25 20:08] LABS: Hemoglobin A1C% w Est Avg Glu > 14.0 % (4.0-6.0)
[2023-09-25 20:12] LABS: Alanine Aminotransferase 42 IU/L (<50); Albumin 4.4 g/dL (3.5-5.0); Albumin Globulin Ratio 1.6 (1.0-2.8); Alkaline Phosphatase 179 U/L (38-126); Aspartate Aminotransferase 30 IU/L (17-59); Bilirubin Total 1.8 mg/dL (0.2-1.3); Blood Urea Nitrogen 17 mg/dL (9-20); Calcium 9.8 mg/dL (8.4-10.2); Carbon Dioxide 26 mmol/L (22-32); Chloride 86 mmol/L (98-107); Estimated Glomerular Filt Rate > 60 mL/min (>60); Globulin 2.7 g/dL (1.7-4.1); HEMOLYSIS < 15 (0-50); Potassium 3.3 mmol/L (3.4-5.1); Sodium 131 mmol/L (137-145); Total Protein 7.1 g/dL (6.3-8.2)
[2023-09-26 09:32] LABS: Glucose 659 mg/dL (70-100)
== END ==
PROVIDERS: PCP Physician Assistant; Visit Provider Family Medicine
DX: E11.65 Type 2 diabetes mellitus with hyperglycemia (principal); R05.9 Cough, unspecified
CPT/HCPCS: 80053; 83036; 85025

== ENCOUNTER → 2023-10-03 09:49 | Outpatient (CLI) | payer OTHER, MEDICAID, SELFPAY ==
[2023-08-21 12:14] VITALS: BMI 38.7
[2023-10-03 19:30] LABS: Add Manual Diff / Slide Review NO; Basophils Absolute Auto 100 /uL (0-100); Basophils Percent Auto 1.1 % (0-2); Eosinophils Absolute Auto 100 /uL (0-450); Eosinophils Percent Auto 1.3 % (2-4); Hemoglobin 12.9 g/dL (13.5-17.5); Lymphocytes Absolute Auto 2300 /uL (1100-4500); Lymphocytes Percent Auto 38.8 % (25-40); Mean Corpuscular HGB Conc 34.8 % (30-36); Mean Corpuscular Hemoglobin 31.2 PG (26-34); Mean Corpuscular Volume 89.8 fL (80-100); Monocytes Absolute Auto 400 /uL (0-900); Monocytes Percent Auto 7.5 % (3-14); Neutrophils Absolute Auto 3000 /uL (1500-7000); Neutrophils Percent Auto 51.3 % (50-75); Platelet Count 270 X10^3/uL (150-400); Red Blood Cell Count 4.12 X10^6/uL (4.5-5.9); Red Cell Distribution Width 15.3 % (11.6-14.8); White Blood Cell Count 5.9 X10^3/uL (4.5-11.0)
[2023-10-03 20:12] LABS: Erythrocyte Sedimentation Rate 31 MM/HR (0-15)
[2023-10-03 21:04] LABS: Ferritin 1260 ng/mL (18-464)
== END ==
PROVIDERS: PCP Physician Assistant; Visit Provider Internal Medicine Hematology & Oncology
DX: Z14.8 Genetic carrier of other disease (principal); E78.49 Other hyperlipidemia; I10 Essential (primary) hypertension; E11.8 Type 2 diabetes mellitus with unspecified complications; F10.10 Alcohol abuse, uncomplicated; R79.89 Other specified abnormal findings of blood chemistry
CPT/HCPCS: 82728; 85025; 85651

== ENCOUNTER → 2023-11-06 13:54 | Outpatient (CLI) | payer OTHER, MEDICAID, SELFPAY ==
[2023-10-19 16:32] VITALS: BMI 38.7
[2023-11-06 20:30] LABS: Add Manual Diff / Slide Review NO; Basophils Absolute Auto 0 /uL (0-100); Basophils Percent Auto 0.5 % (0-2); Eosinophils Absolute Auto 100 /uL (0-450); Eosinophils Percent Auto 1.8 % (2-4); Hematocrit 41.8 % (41-53); Hemoglobin 14.5 g/dL (13.5-17.5); Lymphocytes Absolute Auto 1900 /uL (1100-4500); Lymphocytes Percent Auto 24.9 % (25-40); Mean Corpuscular HGB Conc 34.6 % (30-36); Mean Corpuscular Hemoglobin 33.9 PG (26-34); Monocytes Absolute Auto 500 /uL (0-900); Neutrophils Absolute Auto 5000 /uL (1500-7000); Neutrophils Percent Auto 65.8 % (50-75); Platelet Count 249 X10^3/uL (150-400); Red Blood Cell Count 4.27 X10^6/uL (4.5-5.9); White Blood Cell Count 7.7 X10^3/uL (4.5-11.0)
[2023-11-06 20:53] LABS: Erythrocyte Sedimentation Rate 7 MM/HR (0-15)
[2023-11-06 21:16] LABS: Ferritin 337 ng/mL (18-464)
== END ==
PROVIDERS: PCP Physician Assistant; Visit Provider Internal Medicine Hematology & Oncology
DX: Z14.8 Genetic carrier of other disease (principal); E78.49 Other hyperlipidemia; I10 Essential (primary) hypertension; F10.10 Alcohol abuse, uncomplicated; R79.89 Other specified abnormal findings of blood chemistry
CPT/HCPCS: 82728; 85025; 85651

== ENCOUNTER → 2023-11-20 09:56 | Outpatient (CLI) | payer OTHER, MEDICAID, SELFPAY ==
[2023-10-19 16:32] VITALS: BMI 38.7
[2023-11-20 20:51] LABS: Add Manual Diff / Slide Review NO; Basophils Absolute Auto 0 /uL (0-100); Basophils Percent Auto 0.6 % (0-2); Eosinophils Absolute Auto 100 /uL (0-450); Eosinophils Percent Auto 1.9 % (2-4); Hematocrit 40.9 % (41-53); Lymphocytes Absolute Auto 1100 /uL (1100-4500); Lymphocytes Percent Auto 23.2 % (25-40); Mean Corpuscular HGB Conc 34.3 % (30-36); Mean Corpuscular Hemoglobin 34.4 PG (26-34); Mean Corpuscular Volume 100.1 fL (80-100); Monocytes Absolute Auto 300 /uL (0-900); Neutrophils Absolute Auto 3300 /uL (1500-7000); Neutrophils Percent Auto 68.3 % (50-75); Platelet Count 216 X10^3/uL (150-400); Red Blood Cell Count 4.08 X10^6/uL (4.5-5.9); Red Cell Distribution Width 18.4 % (11.6-14.8); White Blood Cell Count 4.9 X10^3/uL (4.5-11.0)
[2023-11-20 21:05] LABS: Erythrocyte Sedimentation Rate 7 MM/HR (0-15)
[2023-11-20 21:36] LABS: Ferritin 202 ng/mL (18-464)
== END ==
PROVIDERS: PCP Physician Assistant; Visit Provider Internal Medicine Hematology & Oncology
DX: E78.49 Other hyperlipidemia (principal); I10 Essential (primary) hypertension; E11.8 Type 2 diabetes mellitus with unspecified complications; F10.10 Alcohol abuse, uncomplicated; R79.89 Other specified abnormal findings of blood chemistry; Z14.8 Genetic carrier of other disease
CPT/HCPCS: 82728; 85025; 85651

== ENCOUNTER → 2023-12-03 13:47 | Outpatient (CLI) | payer OTHER, MEDICAID, SELFPAY ==
[2023-10-19 16:32] VITALS: BMI 38.7
[2023-12-03 19:38] LABS: Add Manual Diff / Slide Review NO; Basophils Absolute Auto 0 /uL (0-100); Basophils Percent Auto 0.5 % (0-2); Eosinophils Absolute Auto 100 /uL (0-450); Eosinophils Percent Auto 1.4 % (2-4); Hematocrit 40.7 % (41-53); Hemoglobin 14.2 g/dL (13.5-17.5); Lymphocytes Absolute Auto 1300 /uL (1100-4500); Lymphocytes Percent Auto 15.9 % (25-40); Mean Corpuscular HGB Conc 34.9 % (30-36); Mean Corpuscular Volume 100.4 fL (80-100); Monocytes Absolute Auto 800 /uL (0-900); Monocytes Percent Auto 9.4 % (3-14); Neutrophils Absolute Auto 5900 /uL (1500-7000); Neutrophils Percent Auto 72.8 % (50-75); Platelet Count 266 X10^3/uL (150-400); Red Blood Cell Count 4.05 X10^6/uL (4.5-5.9); Red Cell Distribution Width 16.6 % (11.6-14.8); White Blood Cell Count 8.1 X10^3/uL (4.5-11.0)
[2023-12-03 19:59] LABS: Erythrocyte Sedimentation Rate 13 MM/HR (0-15)
[2023-12-03 20:14] LABS: Ferritin 94 ng/mL (18-464)
== END ==
PROVIDERS: PCP Physician Assistant; Visit Provider Internal Medicine Hematology & Oncology
DX: Z14.8 Genetic carrier of other disease (principal); E78.49 Other hyperlipidemia; I10 Essential (primary) hypertension; F10.10 Alcohol abuse, uncomplicated; E11.8 Type 2 diabetes mellitus with unspecified complications; R79.89 Other specified abnormal findings of blood chemistry
CPT/HCPCS: 82728; 85025; 85651

== ENCOUNTER → 2023-12-18 13:47 | Outpatient (CLI) | payer OTHER, MEDICAID, SELFPAY ==
[2023-10-19 16:32] VITALS: BMI 38.7
[2023-12-18 21:02] LABS: Add Manual Diff / Slide Review NO; Basophils Absolute Auto 100 /uL (0-100); Basophils Percent Auto 0.7 % (0-2); Eosinophils Absolute Auto 100 /uL (0-450); Eosinophils Percent Auto 1.4 % (2-4); Hemoglobin 15.3 g/dL (13.5-17.5); Lymphocytes Absolute Auto 2200 /uL (1100-4500); Lymphocytes Percent Auto 21.2 % (25-40); Mean Corpuscular Hemoglobin 33.9 PG (26-34); Mean Corpuscular Volume 99.9 fL (80-100); Monocytes Absolute Auto 500 /uL (0-900); Monocytes Percent Auto 5.2 % (3-14); Neutrophils Absolute Auto 7300 /uL (1500-7000); Neutrophils Percent Auto 71.5 % (50-75); Platelet Count 283 X10^3/uL (150-400); Red Blood Cell Count 4.51 X10^6/uL (4.5-5.9); Red Cell Distribution Width 14.7 % (11.6-14.8); White Blood Cell Count 10.3 X10^3/uL (4.5-11.0)
[2023-12-18 21:48] LABS: Ferritin 111 ng/mL (18-464)
[2023-12-18 23:25] LABS: Erythrocyte Sedimentation Rate 4 MM/HR (0-15)
== END ==
PROVIDERS: PCP Physician Assistant; Visit Provider Internal Medicine Hematology & Oncology
DX: Z14.8 Genetic carrier of other disease (principal); E78.41 Elevated Lipoprotein(a); I10 Essential (primary) hypertension; E11.8 Type 2 diabetes mellitus with unspecified complications; F10.10 Alcohol abuse, uncomplicated; R79.89 Other specified abnormal findings of blood chemistry
CPT/HCPCS: 82728; 85025; 85651

== ENCOUNTER → 2024-01-16 13:51 | Outpatient (CLI) | payer OTHER, MEDICAID, SELFPAY ==
[2023-10-19 16:32] VITALS: BMI 38.7
[2024-01-16 20:07] LABS: Add Manual Diff / Slide Review NO; Basophils Absolute Auto 0 /uL (0-100); Basophils Percent Auto 0.4 % (0-2); Eosinophils Absolute Auto 100 /uL (0-450); Eosinophils Percent Auto 1.5 % (2-4); Hematocrit 44.3 % (41-53); Hemoglobin 15.3 g/dL (13.5-17.5); Lymphocytes Absolute Auto 1500 /uL (1100-4500); Lymphocytes Percent Auto 21.4 % (25-40); Mean Corpuscular HGB Conc 34.5 % (30-36); Mean Corpuscular Hemoglobin 33.9 PG (26-34); Mean Corpuscular Volume 98.1 fL (80-100); Monocytes Absolute Auto 600 /uL (0-900); Monocytes Percent Auto 8.6 % (3-14); Neutrophils Absolute Auto 4900 /uL (1500-7000); Neutrophils Percent Auto 68.1 % (50-75); Platelet Count 217 X10^3/uL (150-400); Red Blood Cell Count 4.52 X10^6/uL (4.5-5.9); Red Cell Distribution Width 13.7 % (11.6-14.8); White Blood Cell Count 7.1 X10^3/uL (4.5-11.0)
[2024-01-16 20:40] LABS: Erythrocyte Sedimentation Rate 6 MM/HR (0-15)
[2024-01-16 20:42] LABS: Ferritin 69 ng/mL (18-464)
== END ==
PROVIDERS: PCP Physician Assistant; Referring Provider Internal Medicine Hematology & Oncology; Visit Provider Internal Medicine Hematology & Oncology
DX: Z14.8 Genetic carrier of other disease (principal); E78.49 Other hyperlipidemia; I10 Essential (primary) hypertension; F10.10 Alcohol abuse, uncomplicated; E11.8 Type 2 diabetes mellitus with unspecified complications; R79.89 Other specified abnormal findings of blood chemistry
CPT/HCPCS: 82728; 85025; 85651

== ENCOUNTER → 2024-02-12 13:53 | Outpatient (CLI) | payer OTHER, MEDICAID, SELFPAY ==
[2023-10-19 16:32] VITALS: BMI 38.7
[2024-02-12 19:39] LABS: Add Manual Diff / Slide Review NO; Basophils Absolute Auto 0 /uL (0-100); Basophils Percent Auto 0.7 % (0-2); Eosinophils Absolute Auto 200 /uL (0-450); Eosinophils Percent Auto 2.9 % (2-4); Hematocrit 42.3 % (41-53); Hemoglobin 14.6 g/dL (13.5-17.5); Lymphocytes Absolute Auto 1500 /uL (1100-4500); Lymphocytes Percent Auto 25.5 % (25-40); Mean Corpuscular HGB Conc 34.7 % (30-36); Mean Corpuscular Hemoglobin 33.8 PG (26-34); Mean Corpuscular Volume 97.6 fL (80-100); Monocytes Absolute Auto 500 /uL (0-900); Monocytes Percent Auto 8.8 % (3-14); Neutrophils Absolute Auto 3600 /uL (1500-7000); Neutrophils Percent Auto 62.1 % (50-75); Platelet Count 205 X10^3/uL (150-400); Red Blood Cell Count 4.33 X10^6/uL (4.5-5.9); Red Cell Distribution Width 14.2 % (11.6-14.8); White Blood Cell Count 5.8 X10^3/uL (4.5-11.0)
[2024-02-12 19:59] LABS: Erythrocyte Sedimentation Rate 5 MM/HR (0-15)
[2024-02-12 20:15] LABS: Ferritin 48 ng/mL (18-464)
== END ==
PROVIDERS: PCP Physician Assistant; Visit Provider Internal Medicine Hematology & Oncology
DX: E78.49 Other hyperlipidemia (principal); Z14.8 Genetic carrier of other disease; I10 Essential (primary) hypertension; E11.8 Type 2 diabetes mellitus with unspecified complications; F10.10 Alcohol abuse, uncomplicated; R79.89 Other specified abnormal findings of blood chemistry
CPT/HCPCS: 82728; 85025; 85651

== ENCOUNTER → 2024-03-02 08:36 | Outpatient (CLI) | payer OTHER, MEDICAID, SELFPAY ==
[2023-10-19 16:32] VITALS: BMI 38.7
--- NOTE | 2024-03-02 08:38 | DI.MRI.S_ITS ---
PROCEDURE: MR ANKLE RT WO CON INDICATIONS: Ongoing right ankle pain, swelling and weakness TECHNIQUE: Noncontrast sagittal T1 spin echo and T2 fast spin echo with fat saturation, axial proton density fast spin echo and T2 fast spin echo with fat saturation, coronal T1 spin echo and T2 fast spin echo with fat saturation through the ankle/hindfoot. COMPARISON: None. FINDINGS: Image quality: Excellent Tendons: Mild tenosynovitis of the posterior tibialis. The flexor digitorum longus and the flexor hallucis longus are unremarkable. The extensor tendons, is unremarkable. Mild tenosynovitis of the peroneal tendons, without tear. The distal Achilles tendon is unremarkable. Ligaments: The anterior and the posterior tibiofibular ligament are intact. Thickening of the anterior talofibular ligament, representing prior sprain. The posterior talofibular ligament is intact. Thickening of the calcaneofibular ligament, representing prior sprain. The deep portion of the deltoid ligament is intact. Sinus tarsi: No fibrosis Plantar fascia: Unremarkable Muscles: Normal in signal Bones: Screw track is seen lateral malleolus. No acute fracture. Chronic, small avulsion fracture at the tip of the lateral No significant tibiotalar effusion. malleolus. Mild subcutaneous edema of the medial and lateral ankle. IMPRESSION: 1. Mild tenosynovitis of posterior tibialis. 2. Prior sprain of the lateral ankle ligaments. Screw track is seen the lateral malleolus. 3. Mild subcutaneous edema of the ankle. Dictated by: Noemy Contreras M.D. on 03/03/2024 at 12:49 Approved by: Noemy Contreras M.D. on 03/03/2024 at 12:56
== END ==
LOC: MRI 08:37
PROVIDERS: PCP Physician Assistant; Referring Provider Physician Assistant; Visit Provider Physician Assistant
DX: S82.61XG Displaced fracture of lateral malleolus of right fibula, subsequent encounter for closed fracture with delayed healing (principal); M65.871 Other synovitis and tenosynovitis, right ankle and foot; M25.471 Effusion, right ankle; S93.491A Sprain of other ligament of right ankle, initial encounter; Z02.6 Encounter for examination for insurance purposes
CPT/HCPCS: 73721

== ENCOUNTER → 2024-03-05 10:47 | Outpatient (CLI) | payer OTHER, MEDICAID, SELFPAY ==
[2023-10-19 16:32] VITALS: BMI 38.7
[2024-03-05 19:02] LABS: Add Manual Diff / Slide Review NO; Basophils Absolute Auto 0 /uL (0-100); Basophils Percent Auto 0.7 % (0-2); Eosinophils Absolute Auto 200 /uL (0-450); Eosinophils Percent Auto 2.9 % (2-4); Hematocrit 44.4 % (41-53); Hemoglobin 15.4 g/dL (13.5-17.5); Lymphocytes Absolute Auto 1700 /uL (1100-4500); Mean Corpuscular HGB Conc 34.8 % (30-36); Mean Corpuscular Hemoglobin 33.9 PG (26-34); Mean Corpuscular Volume 97.6 fL (80-100); Monocytes Absolute Auto 600 /uL (0-900); Monocytes Percent Auto 9.6 % (3-14); Neutrophils Absolute Auto 3600 /uL (1500-7000); Neutrophils Percent Auto 58.8 % (50-75); Platelet Count 250 X10^3/uL (150-400); Red Blood Cell Count 4.54 X10^6/uL (4.5-5.9); White Blood Cell Count 6.2 X10^3/uL (4.5-11.0)
[2024-03-05 20:09] LABS: Erythrocyte Sedimentation Rate 6 MM/HR (0-15)
[2024-03-05 20:21] LABS: Ferritin 58 ng/mL (18-464)
== END ==
PROVIDERS: PCP Physician Assistant; Visit Provider Internal Medicine Hematology & Oncology
DX: Z14.8 Genetic carrier of other disease (principal)
CPT/HCPCS: 82728; 85025; 85651

== ENCOUNTER → 2024-03-27 11:25 | Outpatient (CLI) | payer OTHER, MEDICAID, SELFPAY ==
[2023-10-19 16:32] VITALS: BMI 38.7
[2024-03-27 20:53] LABS: Creatinine Urine Random 247.45 mg/dL
[2024-03-27 20:59] LABS: Microalbumin Urine Random 2.4 mg/dL (0-1.6)
== END ==
PROVIDERS: PCP Physician Assistant; Visit Provider Family Medicine
DX: E11.40 Type 2 diabetes mellitus with diabetic neuropathy, unspecified (principal); E11.65 Type 2 diabetes mellitus with hyperglycemia; Z79.4 Long term (current) use of insulin
CPT/HCPCS: 82043; 82570

== ENCOUNTER → 2024-04-08 14:20 | Outpatient (CLI) | payer OTHER, MEDICAID, SELFPAY ==
[2023-10-19 16:32] VITALS: BMI 38.7
[2024-04-08 19:57] LABS: Add Manual Diff / Slide Review NO; Basophils Absolute Auto 100 /uL (0-100); Basophils Percent Auto 0.7 % (0-2); Eosinophils Absolute Auto 100 /uL (0-450); Eosinophils Percent Auto 1.4 % (2-4); Hematocrit 43.4 % (41-53); Lymphocytes Absolute Auto 2100 /uL (1100-4500); Lymphocytes Percent Auto 22.8 % (25-40); Mean Corpuscular HGB Conc 34.5 % (30-36); Mean Corpuscular Hemoglobin 33.7 PG (26-34); Mean Corpuscular Volume 97.9 fL (80-100); Monocytes Absolute Auto 800 /uL (0-900); Monocytes Percent Auto 8.8 % (3-14); Neutrophils Absolute Auto 6100 /uL (1500-7000); Neutrophils Percent Auto 66.3 % (50-75); Platelet Count 321 X10^3/uL (150-400); Red Blood Cell Count 4.43 X10^6/uL (4.5-5.9); Red Cell Distribution Width 14.2 % (11.6-14.8); White Blood Cell Count 9.2 X10^3/uL (4.5-11.0)
[2024-04-08 20:46] LABS: Ferritin 35 ng/mL (18-464)
== END ==
PROVIDERS: PCP Physician Assistant; Visit Provider Internal Medicine Hematology & Oncology
DX: Z14.8 Genetic carrier of other disease (principal)
CPT/HCPCS: 82728; 85025

== ENCOUNTER → 2024-06-18 11:31 | Outpatient (CLI) | payer OTHER, SELFPAY ==
[2023-10-19 16:32] VITALS: BMI 38.7
[2024-06-18 19:23] LABS: Add Manual Diff / Slide Review NO; Basophils Absolute Auto 100 /uL (0-100); Eosinophils Absolute Auto 200 /uL (0-450); Eosinophils Percent Auto 2.8 % (2-4); Hematocrit 45.2 % (41-53); Hemoglobin 15.3 g/dL (13.5-17.5); Lymphocytes Absolute Auto 1800 /uL (1100-4500); Lymphocytes Percent Auto 23.8 % (25-40); Mean Corpuscular HGB Conc 33.8 % (30-36); Mean Corpuscular Hemoglobin 32.9 PG (26-34); Mean Corpuscular Volume 97.2 fL (80-100); Monocytes Absolute Auto 400 /uL (0-900); Monocytes Percent Auto 5.4 % (3-14); Neutrophils Absolute Auto 5200 /uL (1500-7000); Platelet Count 401 X10^3/uL (150-400); Red Blood Cell Count 4.65 X10^6/uL (4.5-5.9); Red Cell Distribution Width 15.3 % (11.6-14.8); White Blood Cell Count 7.7 X10^3/uL (4.5-11.0)
[2024-06-18 19:27] LABS: Alanine Aminotransferase 56 IU/L (<50); Albumin 4.5 g/dL (3.5-5.0); Albumin Globulin Ratio 1.6 (1.0-2.8); Alkaline Phosphatase 109 U/L (38-126); Aspartate Aminotransferase 57 IU/L (17-59); BUN Creatinine Ratio 19.8 (6-22); Bilirubin Total 0.7 mg/dL (0.2-1.3); Blood Urea Nitrogen 17 mg/dL (9-20); Calcium 9.6 mg/dL (8.4-10.2); Carbon Dioxide 33 mmol/L (22-32); Chloride 100 mmol/L (98-107); Cholesterol 175 mg/dL (140-199); Estimated Glomerular Filt Rate > 60 mL/min (>60); Globulin 2.9 g/dL (1.7-4.1); Glucose 151 mg/dL (70-100); HDL Cholesterol 67 mg/dL (40-60); HEMOLYSIS < 15 (0-50); LDL Cholesterol Calculated 78 mg/dL (<100); Potassium 4.1 mmol/L (3.4-5.1); Sodium 141 mmol/L (137-145); Total Protein 7.4 g/dL (6.3-8.2); Triglycerides 151 mg/dL (35-150)
[2024-06-18 19:35] LABS: Hemoglobin A1C% w Est Avg Glu 5.7 % (4.0-6.0)
[2024-06-18 20:02] LABS: Ferritin 60 ng/mL (18-464)
[2024-06-18 20:06] LABS: Thyroid Stimulating Hormone 2.43 uIU/mL (0.47-4.68)
== END ==
PROVIDERS: PCP Physician Assistant; Visit Provider Family Medicine
DX: E11.69 Type 2 diabetes mellitus with other specified complication (principal); M14.80 Arthropathies in other specified diseases classified elsewhere, unspecified site; E83.118 Other hemochromatosis; E83.119 Hemochromatosis, unspecified; R74.8 Abnormal levels of other serum enzymes; L40.9 Psoriasis, unspecified; D64.9 Anemia, unspecified; Z79.4 Long term (current) use of insulin
CPT/HCPCS: 80053; 80061; 82728; 83036; 84443; 85025

== ENCOUNTER → 2024-07-29 11:41 | Outpatient (CLI) | payer OTHER, SELFPAY ==
[2024-06-27 09:48] VITALS: BMI 38.7
[2024-07-29 20:14] LABS: HEMOLYSIS < 15 (0-50); Iron 92 ug/dL (49-181)
[2024-07-29 20:18] LABS: Add Manual Diff / Slide Review NO; Basophils Absolute Auto 0 /uL (0-100); Basophils Percent Auto 0.4 % (0-2); Eosinophils Absolute Auto 200 /uL (0-450); Eosinophils Percent Auto 2.4 % (2-4); Hematocrit 44.5 % (41-53); Hemoglobin 15.4 g/dL (13.5-17.5); Lymphocytes Absolute Auto 1300 /uL (1100-4500); Mean Corpuscular HGB Conc 34.6 % (30-36); Mean Corpuscular Hemoglobin 33.7 PG (26-34); Mean Corpuscular Volume 97.5 fL (80-100); Monocytes Absolute Auto 600 /uL (0-900); Monocytes Percent Auto 7.1 % (3-14); Neutrophils Absolute Auto 6500 /uL (1500-7000); Neutrophils Percent Auto 75.1 % (50-75); Platelet Count 203 X10^3/uL (150-400); Red Blood Cell Count 4.56 X10^6/uL (4.5-5.9); Red Cell Distribution Width 15.6 % (11.6-14.8); White Blood Cell Count 8.6 X10^3/uL (4.5-11.0)
[2024-07-29 20:28] LABS: Percent Iron Saturation 28 % (20-50); Total Iron Binding Capacity 326 ug/dL (261-462); Transferrin 335 mg/dL (206-381)
[2024-07-29 20:48] LABS: Ferritin 28 ng/mL (18-464)
[2024-07-29 20:57] LABS: Erythrocyte Sedimentation Rate 4 MM/HR (0-15)
== END ==
PROVIDERS: PCP Physician Assistant; Visit Provider Internal Medicine Hematology & Oncology
DX: E78.49 Other hyperlipidemia (principal); I10 Essential (primary) hypertension; F10.10 Alcohol abuse, uncomplicated; R79.89 Other specified abnormal findings of blood chemistry; E11.8 Type 2 diabetes mellitus with unspecified complications; Z14.8 Genetic carrier of other disease
CPT/HCPCS: 82728; 83540; 83550; 85025; 85651

== ENCOUNTER → 2024-09-22 08:50 | Outpatient (CLI) | payer OTHER, SELFPAY ==
[2024-06-27 09:48] VITALS: BMI 38.7
[2024-09-24 12:08] LABS: Fecal Immunochemical Test Negative (Negative)
== END ==
PROVIDERS: PCP Family Medicine; Referring Provider Family Medicine; Visit Provider Family Medicine
DX: Z12.11 Encounter for screening for malignant neoplasm of colon (principal)
CPT/HCPCS: 82274

== ENCOUNTER → 2024-10-22 13:37 | Outpatient (CLI) | payer OTHER, SELFPAY ==
[2024-06-27 09:48] VITALS: BMI 38.7
[2024-10-22 20:23] LABS: Add Manual Diff / Slide Review NO; Basophils Absolute Auto 100 /uL (0-100); Eosinophils Absolute Auto 200 /uL (0-450); Eosinophils Percent Auto 3.6 % (2-4); Hemoglobin 16.4 g/dL (13.5-17.5); Lymphocytes Absolute Auto 1900 /uL (1100-4500); Lymphocytes Percent Auto 31.3 % (25-40); Mean Corpuscular HGB Conc 34.2 % (30-36); Mean Corpuscular Hemoglobin 34.5 PG (26-34); Mean Corpuscular Volume 100.7 fL (80-100); Monocytes Absolute Auto 300 /uL (0-900); Monocytes Percent Auto 5.7 % (3-14); Neutrophils Absolute Auto 3400 /uL (1500-7000); Neutrophils Percent Auto 57.4 % (50-75); Platelet Count 243 X10^3/uL (150-400); Red Blood Cell Count 4.76 X10^6/uL (4.5-5.9); Red Cell Distribution Width 13.9 % (11.6-14.8); White Blood Cell Count 5.9 X10^3/uL (4.5-11.0)
[2024-10-22 20:29] LABS: HEMOLYSIS 21 (0-50); Iron 133 ug/dL (49-181)
[2024-10-22 20:42] LABS: Erythrocyte Sedimentation Rate 3 MM/HR (0-15)
[2024-10-22 20:54] LABS: Percent Iron Saturation 33 % (20-50); Total Iron Binding Capacity 404 ug/dL (261-462); Transferrin 347 mg/dL (206-381)
[2024-10-22 21:28] LABS: Ferritin 36 ng/mL (18-464)
== END ==
PROVIDERS: PCP Family Medicine; Visit Provider Internal Medicine Hematology & Oncology
DX: E78.49 Other hyperlipidemia (principal); I10 Essential (primary) hypertension; F10.10 Alcohol abuse, uncomplicated; Z14.8 Genetic carrier of other disease; R79.89 Other specified abnormal findings of blood chemistry; E11.8 Type 2 diabetes mellitus with unspecified complications
CPT/HCPCS: 82728; 83540; 83550; 85025; 85651

== ENCOUNTER → 2025-02-16 12:06 | Outpatient (CLI) | payer OTHER, SELFPAY ==
[2024-12-19 10:50] VITALS: BMI 38.7
== END ==
PROVIDERS: PCP Family Medicine; Visit Provider Family Medicine
DX: E11.9 Type 2 diabetes mellitus without complications (principal)
CPT/HCPCS: 82043; 82570

== ENCOUNTER → 2025-02-25 11:35 | Outpatient (CLI) | payer OTHER, SELFPAY ==
[2024-12-19 10:50] VITALS: BMI 38.7
[2025-02-25 19:27] LABS: Alanine Aminotransferase 28 IU/L (<50); Albumin 4.5 g/dL (3.5-5.0); Albumin Globulin Ratio 1.7 (1.0-2.8); Alkaline Phosphatase 103 U/L (38-126); Blood Urea Nitrogen 15 mg/dL (9-20); Calcium 9.3 mg/dL (8.4-10.2); Carbon Dioxide 27 mmol/L (22-32); Chloride 100 mmol/L (98-107); Estimated Glomerular Filt Rate > 60 mL/min (>60); Globulin 2.6 g/dL (1.7-4.1); Glucose 115 mg/dL (70-99); HEMOLYSIS < 15 (0-50); Potassium 3.2 mmol/L (3.4-5.1); Sodium 138 mmol/L (137-145); Total Protein 7.1 g/dL (6.3-8.2)
[2025-02-25 19:35] LABS: Hemoglobin A1C% w Est Avg Glu 5.9 % (4.0-6.0)
== END ==
PROVIDERS: PCP Family Medicine; Visit Provider Family Medicine
DX: M79.662 Pain in left lower leg (principal); Z79.899 Other long term (current) drug therapy; E11.9 Type 2 diabetes mellitus without complications; I10 Essential (primary) hypertension
CPT/HCPCS: 80053; 83036; 85379

== ENCOUNTER → 2025-04-07 13:10 | Outpatient (CLI) | payer OTHER, SELFPAY ==
[2024-12-19 10:50] VITALS: BMI 38.7
[2025-04-07 19:23] LABS: Add Manual Diff / Slide Review NO; Hematocrit 43.5 % (41-53); Hemoglobin 15.4 g/dL (13.5-17.5); Lymphocytes Absolute Auto 1900 /uL (1100-4500); Mean Corpuscular HGB Conc 35.3 % (30-36); Mean Corpuscular Hemoglobin 31.6 PG (26-34); Mean Corpuscular Volume 89.4 fL (80-100); Platelet Count 265 X10^3/uL (150-400)
[2025-04-07 19:27] LABS: HEMOLYSIS 21 (0-50); Iron 135 ug/dL (49-181)
[2025-04-07 19:41] LABS: Percent Iron Saturation 34 % (20-50); Total Iron Binding Capacity 401 ug/dL (261-462); Transferrin 338 mg/dL (206-381)
[2025-04-07 20:04] LABS: Ferritin 18 ng/mL (18-464)
== END ==
PROVIDERS: PCP Family Medicine; Visit Provider Internal Medicine Hematology & Oncology
DX: Z14.8 Genetic carrier of other disease (principal); E78.49 Other hyperlipidemia; I10 Essential (primary) hypertension; F10.10 Alcohol abuse, uncomplicated; R79.89 Other specified abnormal findings of blood chemistry; E11.8 Type 2 diabetes mellitus with unspecified complications
CPT/HCPCS: 82728; 83540; 83550; 85025; 85651

== ENCOUNTER → 2025-05-21 11:51 | Outpatient (CLI) | payer OTHER, SELFPAY ==
[2024-12-19 10:50] VITALS: BMI 38.7
[2025-05-21 19:18] LABS: HEMOLYSIS 16 (0-50); Iron 166 ug/dL (49-181)
[2025-05-21 19:28] LABS: Percent Iron Saturation 44 % (20-50); Total Iron Binding Capacity 378 ug/dL (261-462); Transferrin 308 mg/dL (206-381)
[2025-05-21 19:55] LABS: Ferritin 32 ng/mL (18-464)
[2025-05-21 20:00] LABS: Add Manual Diff / Slide Review NO; Hematocrit 43.6 % (41-53); Hemoglobin 15.4 g/dL (13.5-17.5); Lymphocytes Absolute Auto 1700 /uL (1100-4500); Mean Corpuscular HGB Conc 35.3 % (30-36); Mean Corpuscular Hemoglobin 31.1 PG (26-34); Mean Corpuscular Volume 88.1 fL (80-100); Platelet Count 239 X10^3/uL (150-400)
== END ==
PROVIDERS: PCP Family Medicine; Visit Provider Internal Medicine Hematology & Oncology
DX: E11.8 Type 2 diabetes mellitus with unspecified complications (principal); E78.49 Other hyperlipidemia; I10 Essential (primary) hypertension; F10.10 Alcohol abuse, uncomplicated; R79.89 Other specified abnormal findings of blood chemistry; Z14.8 Genetic carrier of other disease
CPT/HCPCS: 82728; 83540; 83550; 85025; 85651